=== PATIENT | female | born 1940 | race Caucasian/White ===

== ENCOUNTER 2016-05-16 09:56 | Day surgery (SDC) | payer MEDICARE, BC ==
[2016-05-12 14:13] VITALS: BMI 31.9
[~2016-05-16 09:56] MED LIST: DEXAMETHASONE SOD PHOSPHATE 10 MG/ML 1 ML VIAL IV ONE; LACTATED RINGERS 1,000 ML IV SCH; LIDOCAINE 1% 20 ML VIAL (10MG/ML) FOR IV START INTRADERMA PRN; MIDAZOLAM 2 MG/2 ML VIAL IV PRN; ONDANSETRON 4 MG/2 ML VIAL IVP ONE; SCOPOLAMINE 1.5MG/72HR PATCH TRANSDERM ONE
[2016-05-16 10:30] VITALS: RESP 16; TEMP 97.9
[2016-05-16] MEDS: CYCLOPENTOLATE 1% OPHTH SOLN 2 ML BTL OP ONE ×3 (10:33→10:59)
[2016-05-16] MEDS: FLURBIPROFEN 0.03% OPHTH DROPS 2.5 ML BTL OP ONE ×3 (10:43→11:02)
[2016-05-16] MEDS: PHENYLEPHRINE 10% OPHTH DROPS 5 ML BTL OP ONE ×3 (10:46→11:04)
[2016-05-16 10:48] LABS: Glucose,Whole Blood 115 mg/dL (75-99)
[2016-05-16] MEDS ORDERED: PROPOFOL 10 MG/ML 20 ML VIAL IV ONE (11:15)
[2016-05-16] MEDS ORDERED: LIDOCAINE 1% INJ 10MG/ML (20 ML MDV) ONE (11:15)
[2016-05-16] MEDS ORDERED: BALANCED SALT IRRIG SOLN COMB2 15 ML IRRIG.SOLN INTRAOCULA ONE (11:29)
[2016-05-16] MEDS ORDERED: HYALURONATE SODIUM INTRAOCULAR 1 EACH SYRINGE (10MG/ML) INTRAOCULA ONE (11:30)
[2016-05-16] MEDS ORDERED: EPINEPHrine (PF) 0.5 ML in BALANCED SALT IRRIG SOLN COMB2 500 ML IRRIGATION ONE (11:30)
--- NOTE | 2016-05-16 11:41 | P.OP ---
Date of Procedure: 05/16/16 Procedure(s) Performed: PREOPERATIVE DIAGNOSIS: Cataract, right eye. POSTOPERATIVE DIAGNOSIS: Cataract, right eye. OPERATION: Phacoemulsification cataract, right eye. DESCRIPTION OF PROCEDURE: The patient was taken to the preoperative holding area. Intravenous Propofol was given so as to bring about adequate sedation. The following mixture was given for local anesthesia: 5 mL of 2% lidocaine, 5 mL of 0.75% Marcaine, and 1 mL of Wydase. Approximately 4 mL was injected in the retrobulbar space of the surgical eye. Additional 1 mL was then directed to the temporal area of the surgical eye. This was performed to allow adequate neurological block of the facial muscles. The patient was revived and then taken into the operative room. The patient was prepped and draped in the usual sterile manner for the operative eye. A lid speculum was put into position. The conjunctiva was resected back from the limbus in the 12 o'clock position. Bleeding was controlled with electrocautery. A #69 blade was then used and a half-thickness scleral incision approximately 1-mm posterior to the limbus was made on bare sclera. This was shelved in the clear cornea using a crescent knife. Next a 15-degree blade was used to make a stab incision at the 3 o' clock position at the corneolimbal interface. Keratome blade was then used and the superior wound was extended into the anterior chamber. Viscoelastic was injected into the anterior chamber and to maintain its form. Next, a cystotome was used and a continuous anterior capsulotomy was made without difficulty. Hydrodissection using a blunt cannula and BSS was performed. Phaco probe was then employed and a groove extending from 12 to 6 o'clock in the lens was created. A Casper wand was used through the stab incision so as to perform a divide and conquer technique. Next an irrigation aspiration probe was utilized and any residual cortex was removed from the eye. Again, viscoelastic was injected into the anterior chamber. An Indra posterior chamber lens implant was placed in the cartridge and injected into the anterior chamber without difficulty. The SinOmnioxey hook was utilized to spin the lens into position and this was again performed without any difficulty. The irrigation and aspiration probe was again employed and any residual viscoelastic was removed from the eye. Then BSS was injected into the limbal stab incision and the anterior chamber re-inflated. The conjunctiva was reapproximated using electrocautery. One drop of 0.25% Timoptic was placed over the corneal along with TobraDex ophthalmic ointment. Two sterile patches and a Sanchez eye shield were taped into position. The patient was transported to the recovery room in stable condition. Pathology: none sent Condition: stable Disposition: same day
[2016-05-16 12:06] VITALS: BP 138/72; PULSE 80
[2016-05-16] MEDS ORDERED: TIMOLOL 0.5% OPHTH SOLN (PF) 0.2 ML DROPERETTE OP ONE (23:00)
[2016-05-16] MEDS ORDERED: BUPIVACAINE (PF) 0.75% 5 ML, LIDOCAINE 4% (PF) 5 ML, HYALURONIDASE, HUMAN RECOMB 150 UNIT MISCELLANE ONE ×3 (23:00)
[2016-05-16] MEDS ORDERED: GENTAMICIN/PREDNISOL AC OPHTH OINT 3.5GM OPHTHALMIC ONE (23:00)
== END 2016-05-16 12:24 | disposition home or self-care (01) ==
LOC: OR 09:56
PROVIDERS: ATTEND Ophthalmology
DX: H26.9 Unspecified cataract (principal); E11.9 Type 2 diabetes mellitus without complications; I10 Essential (primary) hypertension; K21.9 Gastro-esophageal reflux disease without esophagitis; Z88.1 Allergy status to other antibiotic agents; Z88.0 Allergy status to penicillin; Z79.84 Long term (current) use of oral hypoglycemic drugs; Z79.899 Other long term (current) drug therapy; Z98.42 Cataract extraction status, left eye; Z96.1 Presence of intraocular lens
CPT/HCPCS: 66984; V2632; J2001 ×2; J3470; J0171; J2704; 99152; 99153

== ENCOUNTER 2018-07-16 19:47 | Emergency (ER) | payer MEDICARE, BC ==
--- NOTE | 2018-07-16 21:25 | ED ---
General Adult HPI - General Chief complaint: Recheck/Abnormal Lab/Rx Stated complaint: High bp,shaking,headache Time Seen by Provider: 07/16/18 21:02 Source: patient Mode of arrival: wheelchair Limitations: no limitations - History of Present Illness Initial comments: Patient is a 77-year-old female with a history of hypertension who presents with a chief complaint of headache and "shakiness". Patient states that for the last 2 weeks she has not been taking her amlodipine secondary to a recall that she read about on Facebook. The patient states that today she restarted her medication as her blood pressure was reading high. She states that her symptoms lasted about an hour and then resolved after taking the medication. - Related Data Home Medications Medication Instructions Recorded Confirmed amLODIPine [Norvasc] 10 mg PO DAILY 03/27/16 07/16/18 metFORMIN HCL [Glucophage] 1,000 mg PO BID 03/27/16 07/16/18 sitaGLIPtin PHOSPHATE [Januvia] 100 mg PO DAILY 03/27/16 07/16/18 Co Q-10 1 tab PO DAILY 05/12/16 07/16/18 [place]-3 Fatty Acids/Fish Oil [Fish 1 cap PO DAILY 05/12/16 07/16/18 Oil 1,000 mg Softgel] Cinnamon Bark [Cinnamon] 500 mg PO DAILY 07/16/18 07/16/18 Magnesium(Unknown) 1 tab PO DAILY 07/16/18 07/16/18 Turmeric Root Extract [Turmeric] 500 mg PO DAILY 07/16/18 07/16/18 Vitamin D3(Unknown) 1 tab PO DAILY 07/16/18 07/16/18 Allergies Allergy/AdvReac Type Severity Reaction Status Date / Time Penicillins Allergy Rash/Hives Verified 07/16/18 20:58 Review of Systems ROS Statement: Those systems with pertinent positive or pertinent negative responses have been documented in the HPI. ROS Other: All systems not noted in ROS Statement are negative. Neurological: Reports: headache Past Medical History Past Medical History: Blood Disorder, Diabetes Mellitus, GERD/Reflux, Hearing Disorder / Deafness, Hyperlipidemia, Hypertension, Osteoarthritis (OA) Additional Past Medical History / Comment(s): BACK PAIN, THALASSEMIA MINOR. History of Any Multi-Drug Resistant Organisms: None Reported Past Surgical History: Hysterectomy, Orthopedic Surgery, Tonsillectomy Additional Past Surgical History / Comment(s): right elbow surgery, CATARACT LEFT EYE (03/28/16) Past Anesthesia/Blood Transfusion Reactions: No Reported Reaction Past Psychological History: No Psychological Hx Reported Smoking Status: Never smoker Past Alcohol Use History: None Reported Past Drug Use History: None Reported - Past Family History Mother Family Medical History: No Reported History Additional Family Medical History / Comment(s): THALLISEMIA AND SIBLINGS ALSO. General Exam Limitations: no limitations General appearance: alert, in no apparent distress Head exam: Present: atraumatic, normocephalic Eye exam: Present: normal appearance, PERRL ENT exam: Present: normal exam Neck exam: Present: normal inspection Respiratory exam: Present: normal lung sounds bilaterally. Absent: respiratory distress, wheezes Cardiovascular Exam: Present: regular rate, normal rhythm GI/Abdominal exam: Present: soft. Absent: distended, tenderness Rectal exam: Present: deferred Extremities exam: Present: normal inspection Back exam: Present: normal inspection Neurological exam: Present: alert, oriented X3 Psychiatric exam: Present: normal affect, normal mood Skin exam: Present: warm, dry, intact Course Vital Signs 07/16/18 07/16/18 07/16/18 19:57 21:35 23:45 Temperature 97.8 F 97.6 F Pulse Rate 91 77 75 Respiratory 16 18 18 Rate Blood Pressure 154/73 145/77 132/67 O2 Sat by Pulse 98 96 98 Oximetry Medical Decision Making - Medical Decision Making Patient presents with a chief complaint of headache and hypertension. On initial evaluation, vital signs are stable, blood pressure is 150s over 70s, patient is in no acute distress. She is currently asymptomatic. She'll be evaluated basic labs and EKG. EKG performed at 2145 shows normal sinus rhythm with a rate of 77 bpm. Segment appeared be within normal limits, there are no acute signs of ischemia. 11:40 PM Lab evaluation this patient is unremarkable except for creatinine of 1.20. Left was within normal limits. Patient's blood pressure is around 130 systolic without intervention. At this time, the patient still for discharge and primary care follow-up. She was instructed to continue taking her amlodipine as prescribed. Return to the emergency department if symptoms worsen or change. - Lab Data Result diagrams: 07/16/18 21:33 07/16/18 21:33 Lab Results 07/16/18 07/16/18 07/16/18 Range/Units 21:33 21:33 21:33 WBC 6.9 (3.8-10.6) k/uL RBC 5.75 H (3.80-5.40) m/uL Hgb 10.7 L (11.4-16.0) gm/dL Hct 35.4 (34.0-46.0) % MCV 61.6 L (80.0-100.0) fL MCH 18.6 L (25.0-35.0) pg MCHC 30.2 L (31.0-37.0) g/dL RDW 15.4 (11.5-15.5) % Plt Count 247 (150-450) k/uL Neutrophils % 50 % Lymphocytes % 38 % Monocytes % 6 % Eosinophils % 4 % Basophils % 1 % Neutrophils # 3.4 (1.3-7.7) k/uL Lymphocytes # 2.6 (1.0-4.8) k/uL Monocytes # 0.4 (0-1.0) k/uL Eosinophils # 0.3 (0-0.7) k/uL Basophils # 0.1 (0-0.2) k/uL Hypochromasia Slight Microcytosis Marked Sodium 141 (137-145) mmol/L Potassium 4.6 (3.5-5.1) mmol/L Chloride 109 H (98-107) mmol/L Carbon Dioxide 23 (22-30) mmol/L Anion Gap 9 mmol/L BUN 23 H (7-17) mg/dL Creatinine 1.20 H (0.52-1.04) mg/dL Est GFR (CKD-EPI)AfAm 50 (>60 ml/min/1.73 sqM) Est GFR (CKD-EPI)NonAf 43 (>60 ml/min/1.73 sqM) Glucose 111 H (74-99) mg/dL Calcium 10.2 (8.4-10.2) mg/dL Troponin I <0.012 (0.000-0.034) ng/mL Disposition Clinical Impression: Hypertension Disposition: HOME SELF-CARE Condition: Good Instructions (If sedation given, give patient instructions): Amlodipine (By mouth), Hypertension (ED) Is patient prescribed a controlled substance at d/c from ED?: No Referrals: Johnson Whalen DO [Primary Care Provider] - 1-2 days
[2018-07-16 21:36] VITALS: RESP 18
[2018-07-16 21:53] LABS: Basophils # (A) 0.1 k/uL (0-0.2); Basophils % (A) 1 %; Eosinophils # (A) 0.3 k/uL (0-0.7); Eosinophils % (A) 4 %; HCT 35.4 % (34.0-46.0); HGB 10.7 gm/dL (11.4-16.0); Hypochromasia Slight; Lymphocytes # (A) 2.6 k/uL (1.0-4.8); Lymphocytes % (A) 38 %; MCH 18.6 pg (25.0-35.0); MCHC 30.2 g/dL (31.0-37.0); MCV 61.6 fL (80.0-100.0); Mean Platelet Volume 6.5; Microcytosis Marked; Monocytes # (A) 0.4 k/uL (0-1.0); Monocytes % (A) 6 %; Neutrophils # (A) 3.4 k/uL (1.3-7.7); Neutrophils % (A) 50 %; Platelet Count 247 k/uL (150-450); RBC 5.75 m/uL (3.80-5.40); RDW 15.4 % (11.5-15.5); WBC 6.9 k/uL (3.8-10.6)
[2018-07-16 22:21] LABS: Calcium 10.2 mg/dL (8.4-10.2); Potassium 4.6 mmol/L (3.5-5.1)
[2018-07-16 23:46] VITALS: BP 132/67; PULSE 75; TEMP 97.6
== END 2018-07-17 00:01 | disposition home or self-care (01) ==
LOC: EC 19:47
DX: I10 Essential (primary) hypertension (principal); E11.9 Type 2 diabetes mellitus without complications; M19.90 Unspecified osteoarthritis, unspecified site; H91.90 Unspecified hearing loss, unspecified ear; Z79.84 Long term (current) use of oral hypoglycemic drugs; Z79.899 Other long term (current) drug therapy; Z88.0 Allergy status to penicillin
CPT/HCPCS: 36415; 80048; 84484; 85025; 93005; 99284

== ENCOUNTER 2020-04-03 18:28 | Inpatient (IN) | payer MEDICARE, BC ==
[2020-04-03] MEDS ORDERED: MORPHINE SULFATE 4 MG/ML SYRINGE IVP STA (18:41)
[2020-04-03] MEDS ORDERED: ONDANSETRON 4 MG/2 ML VIAL IVP STA (18:41)
[2020-04-03] MEDS: SODIUM CHLORIDE 0.9% 1,000 ML IV SCH ×2 (19:19→22:53)
--- NOTE | 2020-04-03 19:26 | ED ---
Fall HPI <Eber Lennon - Last Filed: 04/03/20 20:12> - General Source: patient, EMS, RN notes reviewed, old records reviewed Mode of arrival: EMS <Guerline Gonzalezily - Last Filed: 04/03/20 20:18> - General Chief Complaint: Fall Stated Complaint: fall/hip pain Time Seen by Provider: 04/03/20 18:31 - History of Present Illness Initial Comments: Patient is a pleasant 79-year-old female presents emergency department today af ter she actually tripped over her feet while she was hanging [place] decorations today. Patient is not on blood thinners. She reports that she tripped landing on her left hip. She reports family was at the home and were able to call 911 and she was transported via EMS. She was given IV ketamine prior to arrival. She does report that her pain is now a 10 out of 10 on her left hip. She denies any head or neck injury. Denies any other extremity injury. (Za Gonzalez) - Related Data Home Medications Medication Instructions Recorded Confirmed amLODIPine [Norvasc] 10 mg PO DAILY 03/27/16 07/16/18 metFORMIN HCL [Glucophage] 1,000 mg PO BID 03/27/16 07/16/18 sitaGLIPtin PHOSPHATE [Januvia] 100 mg PO DAILY 03/27/16 07/16/18 Co Q-10 1 tab PO DAILY 05/12/16 07/16/18 [place]-3 Fatty Acids/Fish Oil [Fish 1 cap PO DAILY 05/12/16 07/16/18 Oil 1,000 mg Softgel] Cinnamon Bark [Cinnamon] 500 mg PO DAILY 07/16/18 07/16/18 Magnesium(Unknown) 1 tab PO DAILY 07/16/18 07/16/18 Turmeric Root Extract [Turmeric] 500 mg PO DAILY 07/16/18 07/16/18 Vitamin D3(Unknown) 1 tab PO DAILY 07/16/18 07/16/18 Allergies Allergy/AdvReac Type Severity Reaction Status Date / Time Penicillins Allergy Rash/Hives Verified 04/03/20 18:51 sulfamethoxazole Allergy Rash/Hives Verified 04/03/20 18:51 [From Bactrim] trimethoprim [From Bactrim] Allergy Rash/Hives Verified 12/05/20 18:51 Review of Systems ROS Other: All systems not noted in ROS Statement are negative. <Eber Lennon - Last Filed: 04/03/20 20:12> ROS Other: All systems not noted in ROS Statement are negative. <Za Gonzalez - Last Filed: 04/03/20 20:18> ROS Statement: Those systems with pertinent positive or pertinent negative responses have been documented in the HPI. Past Medical History Past Medical History: Blood Disorder, Diabetes Mellitus, GERD/Reflux, Hearing Disorder / Deafness, Hyperlipidemia, Hypertension, Osteoarthritis (OA) Additional Past Medical History / Comment(s): BACK PAIN, THALASSEMIA MINOR. History of Any Multi-Drug Resistant Organisms: None Reported Past Surgical History: Hysterectomy, Orthopedic Surgery, Tonsillectomy Additional Past Surgical History / Comment(s): right elbow surgery, CATARACT LEFT EYE (03/28/16) Past Anesthesia/Blood Transfusion Reactions: No Reported Reaction Past Psychological History: No Psychological Hx Reported Smoking Status: Never smoker Past Alcohol Use History: None Reported Past Drug Use History: None Reported - Past Family History Mother Family Medical History: No Reported History Additional Family Medical History / Comment(s): THALLISEMIA AND SIBLINGS ALSO. <CarlosZa - Last Filed: 04/03/20 20:18> General Exam Limitations: no limitations General appearance: alert, in no apparent distress Head exam: Present: atraumatic, normocephalic, normal inspection Eye exam: Present: normal appearance, PERRL, EOMI. Absent: scleral icterus, conjunctival injection, periorbital swelling ENT exam: Present: normal exam, mucous membranes moist Neck exam: Present: normal inspection. Absent: tenderness, meningismus, lymphadenopathy Respiratory exam: Present: normal lung sounds bilaterally. Absent: respiratory distress, wheezes, rales, rhonchi, stridor Cardiovascular Exam: Present: regular rate, normal rhythm, normal heart sounds. Absent: systolic murmur, diastolic murmur, rubs, gallop, clicks GI/Abdominal exam: Present: soft, normal bowel sounds. Absent: distended, tenderness, guarding, rebound, rigid Extremities exam: Present: normal inspection, full ROM, normal capillary refill. Absent: tenderness, pedal edema, joint swelling, calf tenderness Left Hip exam: Present: external rotation, shortening. Absent: normal inspection Knee exam: Present: normal inspection, full ROM Lower Leg exam: Present: normal inspection, full ROM Ankle exam: Present: normal inspection, full ROM Neurovascular tendon exam: Present: no vascular compromise Back exam: Present: normal inspection Neurological exam: Present: alert, oriented X3, CN II-XII intact Psychiatric exam: Present: normal affect, normal mood Skin exam: Present: warm, dry, intact, normal color. Absent: rash <Za Gonzalez - Last Filed: 04/03/20 20:18> - General Exam Comments Initial Comments: 79 year old female, no distress. (Za Gonzalez) Course <Eber Lennon - Last Filed: 04/03/20 20:12> Vital Signs 04/03/20 04/03/20 18:45 20:02 Temperature 98.4 F Pulse Rate 104 H 108 H Respiratory 19 20 Rate Blood Pressure 161/80 167/97 O2 Sat by Pulse 97 98 Oximetry - Reevaluation(s) Reevaluation #1: 04/03/20 20:[address] Ramos who will admit, likely OR tomorrow. Patient will be kept nothing by mouth tonight. Case discussed with Dr. Harkins who will be p laced on consult for preoperative clearance. Patient is alert, well-appearing with complaints only of left hip pain. Distal pulses are intact. X-ray showing left IT fracture. (Eber Lennon) Medical Decision Making - Lab Data Result diagrams: 04/03/20 19:06 04/03/20 19:06 <Eber Lennon - Last Filed: 04/03/20 20:12> - Lab Data Result diagrams: 04/03/20 19:06 04/03/20 19:06 - Radiology Data Radiology results: report reviewed <Za Gonzalez - Last Filed: 04/03/20 20:18> - Medical Decision Making 79-year-old female presents emergency department today for evaluation with complaints of fall today landing on her left hip. She is a short rotated left hip. X-ray confirms a left intertrochanteric fracture. Family requested Dr. Ramos be surgeon. She has history of diabetes and hypertension. She is not on blood thinners. She has no other injury related to the fall. She is otherwise pretty active 79-year-old female. Patient's case was discussed with Dr. Lennon whom discussed the case with Dr. Ramos. (Za Gonzalez) - Lab Data Lab Results 04/03/20 04/03/20 04/03/20 Range/Units 19:06 19:06 19:06 WBC 10.4 (3.8-10.6) k/uL RBC 5.50 H (3.80-5.40) m/uL Hgb 10.5 L (11.4-16.0) gm/dL Hct 34.2 (34.0-46.0) % MCV 62.1 L (80.0-100.0) fL MCH 19.2 L (25.0-35.0) pg MCHC 30.9 L (31.0-37.0) g/dL RDW 15.5 (11.5-15.5) % Plt Count 276 (150-450) k/uL MPV 7.3 Neutrophils % 78 % Lymphocytes % 15 % Monocytes % 3 % Eosinophils % 2 % Basophils % 1 % Neutrophils # 8.1 H (1.3-7.7) k/uL Lymphocytes # 1.6 (1.0-4.8) k/uL Monocytes # 0.4 (0-1.0) k/uL Eosinophils # 0.2 (0-0.7) k/uL Basophils # 0.1 (0-0.2) k/uL Hypochromasia Moderate Microcytosis Marked PT 9.7 (9.0-12.0) sec INR 0.9 (<1.2) APTT 19.5 L (22.0-30.0) sec Sodium 138 (137-145) mmol/L Potassium 4.5 (3.5-5.1) mmol/L Chloride 106 (98-107) mmol/L Carbon Dioxide 19 L (22-30) mmol/L Anion Gap 13 mmol/L BUN 22 H (7-17) mg/dL Creatinine 0.86 (0.52-1.04) mg/dL Est GFR (CKD-EPI)AfAm 74 (>60 ml/min/1.73 sqM) Est GFR (CKD-EPI)NonAf 64 (>60 ml/min/1.73 sqM) Glucose 160 H (74-99) mg/dL Calcium 9.7 (8.4-10.2) mg/dL Total Bilirubin 0.4 (0.2-1.3) mg/dL AST 34 (14-36) U/L ALT 19 (4-34) U/L Alkaline Phosphatase 66 (38-126) U/L Total Protein 7.4 (6.3-8.2) g/dL Albumin 4.5 (3.5-5.0) g/dL Urine Color Urine Appearance (Clear) Urine pH (5.0-8.0) Ur Specific [place] (1.001-1.035) Urine Protein (Negative) Urine Glucose (UA) (Negative) Urine Ketones (Negative) Urine Blood (Negative) Urine Nitrite (Negative) Urine Bilirubin (Negative) Urine Urobilinogen (<2.0) mg/dL Ur Leukocyte Esterase (Negative) 04/03/20 Range/Units 20:01 WBC (3.8-10.6) k/uL RBC (3.80-5.40) m/uL Hgb (11.4-16.0) gm/dL Hct (34.0-46.0) % MCV (80.0-100.0) fL MCH (25.0-35.0) pg MCHC (31.0-37.0) g/dL RDW (11.5-15.5) % Plt Count (150-450) k/uL MPV Neutrophils % % Lymphocytes % % Monocytes % % Eosinophils % % Basophils % % Neutrophils # (1.3-7.7) k/uL Lymphocytes # (1.0-4.8) k/uL Monocytes # (0-1.0) k/uL Eosinophils # (0-0.7) k/uL Basophils # (0-0.2) k/uL Hypochromasia Microcytosis PT (9.0-12.0) sec INR (<1.2) APTT (22.0-30.0) sec Sodium (137-145) mmol/L Potassium (3.5-5.1) mmol/L Chloride (98-107) mmol/L Carbon Dioxide (22-30) mmol/L Anion Gap mmol/L BUN (7-17) mg/dL Creatinine (0.52-1.04) mg/dL Est GFR (CKD-EPI)AfAm (>60 ml/min/1.73 sqM) Est GFR (CKD-EPI)NonAf (>60 ml/min/1.73 sqM) Glucose (74-99) mg/dL Calcium (8.4-10.2) mg/dL Total Bilirubin (0.2-1.3) mg/dL AST (14-36) U/L ALT (4-34) U/L Alkaline Phosphatase (38-126) U/L Total Protein (6.3-8.2) g/dL Albumin (3.5-5.0) g/dL Urine Color Light Yellow Urine Appearance Clear (Clear) Urine pH 6.5 (5.0-8.0) Ur Specific [place] 1.012 (1.001-1.035) Urine Protein Negative (Negative) Urine Glucose (UA) Negative (Negative) Urine Ketones Negative (Negative) Urine Blood Negative (Negative) Urine Nitrite Negative (Negative) Urine Bilirubin Negative (Negative) Urine Urobilinogen <2.0 (<2.0) mg/dL Ur Leukocyte Esterase Negative (Negative) 04/03/20 19:34 EKG performed at 1928 shows sinus tachycardia with premature supraventricular, [place]. Recheck chloride 10 5 bpm.. Intervals 136 most seconds. Curious dur ation 74 ms. QT QTc is 356/470 ms. (Za Gonzalez) - Radiology Data slightly impacted intertrochanteric left femur fracture. No acute active critical coronary disease. Atheromatous aorta. (Za Gonzalez) Disposition <Eber Lennon - Last Filed: 04/03/20 20:12> Is patient prescribed a controlled substance at d/c from ED?: No Time of Disposition: 20:17 <Za Gonzalez - Last Filed: 04/03/20 20:18> Clinical Impression: Hip fracture, left, Diabetes, Hypertension Disposition: ADMITTED IP TO THIS HOSP Condition: Good Referrals: Johnson Whalen DO [Primary Care Provider] - 1-2 days
[2020-04-03 19:32] LABS: Basophils # (A) 0.1 k/uL (0-0.2); Basophils % (A) 1 %; Eosinophils # (A) 0.2 k/uL (0-0.7); Eosinophils % (A) 2 %; HCT 34.2 % (34.0-46.0); HGB 10.5 gm/dL (11.4-16.0); Hypochromasia Moderate; Lymphocytes # (A) 1.6 k/uL (1.0-4.8); Lymphocytes % (A) 15 %; MCH 19.2 pg (25.0-35.0); MCHC 30.9 g/dL (31.0-37.0); MCV 62.1 fL (80.0-100.0); Mean Platelet Volume 7.3; Microcytosis Marked; Monocytes # (A) 0.4 k/uL (0-1.0); Monocytes % (A) 3 %; Neutrophils # (A) 8.1 k/uL (1.3-7.7); Neutrophils % (A) 78 %; Platelet Count 276 k/uL (150-450); RDW 15.5 % (11.5-15.5); WBC 10.4 k/uL (3.8-10.6)
[2020-04-03 19:43] LABS: INR 0.9 (<1.2); Prothrombin Time 9.7 sec (9.0-12.0)
[2020-04-03 19:45] LABS: Albumin 4.5 g/dL (3.5-5.0); Calcium 9.7 mg/dL (8.4-10.2); Potassium 4.5 mmol/L (3.5-5.1); Total Bilirubin 0.4 mg/dL (0.2-1.3); Total Protein 7.4 g/dL (6.3-8.2)
--- NOTE | 2020-04-03 19:52 | XR ---
EXAMINATION TYPE: XR Hip LT and AP Pelvis DATE OF EXAM: 04/03/2020 COMPARISON: NONE HISTORY: Hip pain TECHNIQUE: 3 views FINDINGS: There is acute intertrochanteric fracture left femur. There is mild impaction. There is no dislocation. There is some osteoarthritis in the left hip joint. Pelvic ring is intact. Sacroiliac shaji ints are intact. IMPRESSION: Acute slightly impacted intertrochanteric fracture left femur.
--- NOTE | 2020-04-03 19:53 | XR ---
EXAMINATION TYPE: XR chest 1V DATE OF EXAM: 04/03/2020 COMPARISON: NONE HISTORY: Fall. Pain. TECHNIQUE: Single view FINDINGS: There is no heart failure nor confluent pneumonic infiltrate. Thoracic aorta is atheromatou s. Heart size is fairly normal. Costophrenic angles are clear. IMPRESSION: No active cardiopulmonary disease. Atheromatous aorta.
[2020-04-03 19:59] LABS: Partial Thromboplastin Time 19.5 sec (22.0-30.0)
[2020-04-03 20:06] LABS: Appearance,Urine Clear (Clear); Bilirubin,Urine Negative (Negative); Blood,Urine Negative (Negative); Color,Urine Light Yellow; Glucose,Urine (UA) Negative (Negative); Ketones,Urine Negative (Negative); Leukocyte Esterase,Urine Negative (Negative); Nitrite,Urine Negative (Negative); PH, Urine 6.5 (5.0-8.0); Protein,Urine Negative (Negative); Specific Gravity,Urine 1.012 (1.001-1.035); Urobilinogen,Urine <2.0 mg/dL (<2.0)
[2020-04-03] MEDS ORDERED: ONDANSETRON 4 MG/2 ML VIAL IVP PRN (20:18)
[2020-04-03] MEDS ORDERED: NALOXONE 0.4 MG/ML 1 ML VIAL IV PRN (20:18)
[2020-04-03 21:45] LABS: Glucose,Whole Blood 218 mg/dL (75-99)
[2020-04-03] MEDS: metFORMIN 500 MG TAB PO SCH (22:53)
[2020-04-04] MEDS: MORPHINE SULFATE 4 MG/ML SYRINGE IV PRN ×2 (04:38→08:37)
[2020-04-04 07:37] LABS: Glucose,Whole Blood 115 mg/dL (75-99)
[2020-04-04] MEDS: metFORMIN 500 MG TAB PO SCH ×2 (08:32→17:08)
[2020-04-04] MEDS: amLODIPine 10 MG TAB PO SCH (08:36)
[2020-04-04] MEDS: PANTOPRAZOLE 40 MG/10 ML VIAL IV SCH (08:36)
[2020-04-04] MEDS ORDERED: CO Q10 PO SCH (09:00)
--- NOTE | 2020-04-04 10:06 | P.HPOR ---
History of Present Illness H&P Date: 04/04/20 This patient is an 79-year-old female with past medical history of hypertension and diabetes type 2 that presented to [facility] emergency department yesterday evening via ambulance after a fall in the home. Patient states she was hanging [employer] decorations, lost her footing and fell directly onto the left hip. She states she experienced immediate pain in the hip and was unable to stand up. She alerted her son in law and daughter that were down stairs, who called the ambulance. X-rays in the emergency department revealed a left intertrochanteric hip fracture. The patient was admitted under the care of Dr. Ramos with a consult placed to internal medicine for preoperative medical cl earance. At the time of my exam, the patient is complaining of isolated left hip pain. She states she did not hit her head when she fell. She states currently her pain is pretty well-controlled. She denies numbness or tingling of the left lower extremity. She denies chest pain, shortness breath, nausea, vomiting, fevers, chills. She has no additional complaints at this time. Vital signs are currently stable. Past Medical History Past Medical History: Blood Disorder, Diabetes Mellitus, GERD/Reflux, Hearing Disorder / Deafness, Hyperlipidemia, Hypertension, Osteoarthritis (OA) Additional Past Medical History / Comment(s): BACK PAIN, THALASSEMIA MINOR. History of Any Multi-Drug Resistant Organisms: None Reported Past Surgical History: Hysterectomy, Orthopedic Surgery, Tonsillectomy Additional Past Surgical History / Comment(s): right elbow surgery, CATARACT LEFT EYE (03/28/16) Past Anesthesia/Blood Transfusion Reactions: No Reported Reaction Past Psychological History: No Psychological Hx Reported Smoking Status: Never smoker Past Alcohol Use History: None Reported Past Drug Use History: None Reported - Past Family History Mother Family Medical History: No Reported History Additional Family Medical History / Comment(s): THALLISEMIA AND SIBLINGS ALSO. Medications and Allergies Home Medications Medication Instructions Recorded Confirmed Type amLODIPine [Norvasc] 10 mg PO DAILY 03/27/16 04/03/20 History metFORMIN HCL [Glucophage] 1,000 mg PO BID 03/27/16 04/03/20 History sitaGLIPtin PHOSPHATE [Januvia] 100 mg PO DAILY 03/27/16 04/03/20 History Co Q-10 1 tab PO DAILY 05/12/16 04/03/20 History [place]-3 Fatty Acids/Fish Oil [Fish 1 cap PO HS 05/12/16 04/03/20 History Oil 1,000 mg Softgel] Cinnamon Bark [Cinnamon] 500 mg PO DAILY 07/16/18 04/03/20 History Magnesium(Unknown) 1 tab PO HS 07/16/18 04/03/20 History Turmeric Root Extract [Turmeric] 500 mg PO HS 07/16/18 04/03/20 History Vitamin D3(Unknown) 1 tab PO DAILY 07/16/18 04/03/20 History Red Yeast Rice 600 mg PO DAILY 04/03/20 04/03/20 History Vitamin C(Unknown) 1 tab PO DAILY 04/03/20 04/03/20 History Zinc 50 mg PO DAILY 04/03/20 04/03/20 History Allergies Allergy/AdvReac Type Severity Reaction Status Date / Time Penicillins Allergy Rash/Hives Verified 04/03/20 20:30 sulfamethoxazole Allergy Rash/Hives Verified 04/03/20 20:30 [From Bactrim] trimethoprim [From Bactrim] Allergy Rash/Hives Verified 04/03/20 20:30 Physical Examination On examination, the patient is lying in bed in no acute distress. She is alert and oriented 3. Her head appears normocephalic and atraumatic. Her breathing appears nonlabored. On inspection of the bilateral upper extremities, there are no obvious deformities or signs of trauma. On inspection of the right lower extremity, there are no obvious deformities or signs of trauma. On inspection of the left hip, there is no erythema, ecchymosis, skin discoloration. There are no open wounds or lacerations. There is diffuse pain on palpation of the left hip. No pain on palpation of the left knee, lower leg, ankle, foot. Range of motion of the left hip is not tested at this time. Patient has good strength and range of motion of the left ankle. Motor and sensory function are intact of the left lower extremity. The left lower extremity is warm and well-perfused with brisk capillary refill distally, Dorsalis pedis pulse +2. Calves are soft and nontender to palpation bilateral ly. Fuentes catheter is in place. Results Left hip x-ray 04/03/2020: Left intertrochanteric hip fracture - Labs Labs: Abnormal Lab Results - Last 24 Hours (Table) 04/03/20 04/03/20 04/03/20 Range/Units 19:06 19:06 19:06 RBC 5.50 H (3.80-5.40) m/uL Hgb 10.5 L (11.4-16.0) gm/dL MCV 62.1 L (80.0-100.0) fL MCH 19.2 L (25.0-35.0) pg MCHC 30.9 L (31.0-37.0) g/dL Neutrophils # 8.1 H (1.3-7.7) k/uL APTT 19.5 L (22.0-30.0) sec Carbon Dioxide 19 L (22-30) mmol/L BUN 22 H (7-17) mg/dL Glucose 160 H (74-99) mg/dL POC Glucose (mg/dL) (75-99) mg/dL 04/03/20 04/04/20 Range/Units 21:44 07:35 RBC (3.80-5.40) m/uL Hgb (11.4-16.0) gm/dL MCV (80.0-100.0) fL MCH (25.0-35.0) pg MCHC (31.0-37.0) g/dL Neutrophils # (1.3-7.7) k/uL APTT (22.0-30.0) sec Carbon Dioxide (22-30) mmol/L BUN (7-17) mg/dL Glucose (74-99) mg/dL POC Glucose (mg/dL) 218 H 115 H (75-99) mg/dL H & H 04/03/20 Range/Units 19:06 Hgb 10.5 L (11.4-16.0) gm/dL Hct 34.2 (34.0-46.0) % Coagulation 04/03/20 Range/Units 19:06 INR 0.9 (<1.2) Result Diagrams: 04/03/20 19:06 04/03/20 19:06 Assessment and Plan Assessment: Left intertrochanteric hip fracture status-post ground-level fall at home Plan: - The clinical and imaging findings were discussed with the patient. The patient was discussed in detail with Dr. Ramos. Recommended surgical fixation of her left intertrochanteric hip fracture this afternoon, pending a signed consent. Patient gave her verbal consent during my exam. - I spoke with Dr. Harkins over the phone this morning, who states this patient is cleared medically for surgery today. - NPO diet. - Strict nonweightbearing left lower extremity. Bedrest until surgery. - Pain management as needed. - We will plan for surgery this afternoon.
[2020-04-04 12:30] LABS: Glucose,Whole Blood 134 mg/dL (75-99)
[2020-04-04] MEDS: LINAGLIPTIN 5 MG TABLET PO SCH (12:54)
[2020-04-04] MEDS: ZINC SULFATE 220 MG CAP PO SCH (12:55)
[2020-04-04] MEDS: CHOLECALCIFEROL 400 UNIT TAB PO SCH (12:55)
[2020-04-04] MEDS: ASCORBIC ACID 500 MG TAB PO SCH (12:55)
[2020-04-04] MEDS ORDERED: fentaNYL (PF) 50 MCG/ML 2 ML AMP ONE (14:00)
[2020-04-04] MEDS ORDERED: PROPOFOL 10 MG/ML 20 ML VIAL IV ONE (14:00)
[2020-04-04] MEDS ORDERED: MIDAZOLAM 2 MG/2 ML VIAL ONE (14:00)
[2020-04-04] MEDS ORDERED: SODIUM CHLORIDE 0.9% 100 ML IV ONE (14:03)
[2020-04-04] MEDS ORDERED: ceFAZolin 1,000 MG in SODIUM CHLORIDE 0.9% 1,000 ML IRRIGATION ONE (14:30)
[2020-04-04] MEDS ORDERED: LACTATED RINGERS 1,000 ML IV ONE (14:45)
[2020-04-04] MEDS ORDERED: ONDANSETRON 4 MG/2 ML VIAL IVP PRN (15:18)
[2020-04-04] MEDS ORDERED: NALOXONE 0.4 MG/ML 1 ML VIAL IV PRN (15:18)
[2020-04-04 16:57] LABS: Basophils # (A) 0.1 k/uL (0-0.2); Basophils % (A) 1 %; Eosinophils # (A) 0.2 k/uL (0-0.7); Eosinophils % (A) 2 %; HCT 34.9 % (34.0-46.0); HGB 10.7 gm/dL (11.4-16.0); Hypochromasia Moderate; Lymphocytes # (A) 1.6 k/uL (1.0-4.8); Lymphocytes % (A) 14 %; MCH 19.5 pg (25.0-35.0); MCHC 30.7 g/dL (31.0-37.0); MCV 63.7 fL (80.0-100.0); Mean Platelet Volume 6.6; Microcytosis Marked; Monocytes # (A) 0.6 k/uL (0-1.0); Monocytes % (A) 5 %; Neutrophils # (A) 9.1 k/uL (1.3-7.7); Neutrophils % (A) 78 %; Platelet Count 205 k/uL (150-450); RBC 5.48 m/uL (3.80-5.40); RDW 15.4 % (11.5-15.5); WBC 11.6 k/uL (3.8-10.6)
[2020-04-04 17:05] LABS: Glucose,Whole Blood 171 mg/dL (75-99)
[2020-04-04] MEDS: ENOXAPARIN 40 MG/0.4 ML SYRINGE SQ SCH (17:08)
[2020-04-04] MEDS: HYDROcodone/APAP 5-325MG 1 EACH TAB PO PRN ×2 (17:15→21:33)
[2020-04-04] MEDS: HYDROmorphone 0.5 MG/0.5 ML SYRINGE IVP PRN ×2 (17:33→22:39)
--- NOTE | 2020-04-04 19:33 | OP ---
OPERATIVE REPORT DATE OF PROCEDURE: 04/04/2020 SURGEON: Evelio Ramos MD. PREOPERATIVE DIAGNOSIS: Left intertrochanteric hip fracture. POSTOPERATIVE DIAGNOSIS: Left intertrochanteric hip fracture. PROCEDURE PERFORMED: Left intramedullary hip screw fixation for left intertrochanteric hip fracture. ANESTHESIA: Spinal with sedation. ESTIMATED BLOOD LOSS: 100 mL. TOURNIQUET: None. DRAINS: None. COMPLICATIONS: None apparent. DISPOSITION: Postanesthesia care unit. INDICATIONS: Lluvia is a very pleasant 79-year-old female who slipped and fell at her home last night. She was brought to [facility] via ambulance. Workup including x-rays revealed a left displaced intertrochanteric hip fracture. She was admitted to the hospital. Preoperative clearance was done by Medicine for medical service. Recommendation from an orthopedic standpoint was for intramedullary hip screw fixation for the left intertrochanteric hip fracture. The risks of procedure were discussed with her in detail. These risks include, but are not limited to risk of infection, nerve damage, bleeding, pain, and a small risk of deep vein thrombosis which could lead to fatal pulmonary emboli. Further risks include lack of healing of the fracture and migration of the implant. All of her questions with regard to the procedure were answered to her satisfaction. Appropriate informed consent was obtained. DESCRIPTION OF PROCEDURE: The patient was identified in the preop holding area. Surgical site was marked by both the patient and myself. She was given 2 g of Ancef IV for prophylactic purposes. He was then transferred to the operative suite, where she was placed supine on the operative table. Spinal anesthetic was then administered, dosed per the Anesthesia Department without apparent complication. She was then placed onto the fracture table well-padded in preparation for surgery. The fracture was reduced with traction and rotation. This was confirmed with fluoroscopic imaging. When I was happy with the reduction, we proceeded. The patient's left lower extremity than prepped and draped in the usual sterile fashion. Standard surgical pause was undertaken to ensure that we were operating on the correct site and that appropriate preoperative antibiotics were given. All staff in the room were in agreement and we proceeded. The tip of the greater trochanter was then identified utilizing fluoroscopy. An approximate 3 cm incision extending from the tip of the greater trochanter proximally in line with the shaft of the femur was then made with a 10 blade scalpel. This was carried down sharply to the tensor fascia. The tensor fascia was then incised in line with the incision. The curved awl was then placed on the medial aspect of the tip of the greater trochanter. The threaded guide pin was then advanced down the femoral canal. Again this was confirmed with fluoroscopic imaging. The starting reamer was then utilized to gain access to the proximal femur. The threaded guide pin was removed and a ball-tipped guidewire was then placed down the shaft of the femur. Again this was confirmed with fluoroscopic imaging. I then proceeded to ream the intramedullary canal. Started with a 9 mm reamer and incrementally increased up to a 13 mm reamer. I then had the labor representative open a Benson 180 mm x 11 mm x 125 degree gamma nail. This was then assembled on the back table. This was then inserted over the ball-tipped guidewire. The ball-tipped guidewire was removed. A 2nd small incision was made on the lateral thigh. The threaded guide pin was then placed through the nail and into the center of the femoral head on both AP and lateral views. The tip-apex distance was appropriate. I then measured for length. I measured 100 mm. The drill was then set for 100 mm and the threaded guide pin was over-drilled under fluoroscopic imaging. I then had the labor representative open a 10 mm x 100 mm partially-threaded cannulated hip screw. This was then inserted over the threaded guide pin deep into the center of the femoral head. Her bone quality was very good. The screw had very good purchase in bone. The tip-apex distance was appropriate. Given the excellent purchase in bone, I did also proceed to compress at the fracture site at this point was well. The set screw was then placed, tightened down fully and then backed off 1/4 turn to allow for further compression at the fracture site. I then proceeded with placement of the distal locking screw. A third small stab incision was made on the lateral thigh. A 5 mm x 35 mm distal screw was placed through the static hole in the nail. Again its placement was confirmed with fluoroscopic imaging. At this point time, no further work was deemed necessary. Final AP and lateral views were taken. The nail was within the medullary canal. The hip screw was deep into the center of the femoral head. The tip-apex distance was appropriate. The distal screw was through the nail and was of appropriate length. At this point in time no further work was deemed necessary. The jig was removed. The wounds were then thoroughly irrigated with sterile saline solution with antibiotic added. The tensor fascia was closed with #1 Vicryl interrupted suture. The subcutaneous tissue was closed with 2-0 Vicryl interrupted suture. The skin was closed with stainless steel kevin. Sterile compressive dressing was then applied. All sponge and needle counts were deemed correct prior to closure. The patient tolerated the procedure without apparent complication. She was transferred to the recovery room in stable condition. MMODL / IJN: [id number] /
--- NOTE | 2020-04-04 19:54 | XR ---
EXAMINATION TYPE: XR Hip Complete LT, FL guidance operating room DATE OF EXAM: 04/04/2020 COMPARISON: NONE HISTORY: 79 year-old female left IT nailing FINDINGS: Intraoperative fluoroscopy during left proximal femoral intertrochanteric nailing. FLUOROSCOPY Fluoroscopy time of 1 minute 11 seconds was used during left IT narrowing. 2 image/s document/s the procedure. IMPRESSION: Fluoroscopy as above.
[2020-04-04 20:51] LABS: Glucose,Whole Blood 206 mg/dL (75-99)
[2020-04-04] MEDS: MAGNESIUM OXIDE 400 MG TAB PO SCH (21:33)
[2020-04-04] MEDS: SENNOSIDES-DOCUSATE SODIUM 1 EACH TAB PO SCH (21:33)
[2020-04-04] MEDS: ASPIRIN 81 MG PO SCH (21:33)
--- NOTE | 2020-04-04 22:05 | P.CONS ---
History of Present Illness - Reason for Consult Consult date: 04/04/20 Medical management Requesting physician: Johnson Whalen - Chief Complaint Left hip pain - History of Present Illness Consultation: This is a very pleasant 79-year-old patient of Dr. Whalen. Chronic stable medical conditions include diabetes, GERD, hyperlipidemia hypertension, osteoarthritis, thalassemia minor. Patient tripped mechanically taking off fall on the the left hip. Having significant pain. Did confirm to have a left femur neck fracture. Has no prior cardiac history and rather active. On September the day. The patient to go to surgery. Does not normally have any chest pain or shortness breath. Has a fair exercise tolerance. Patient was seen following surgery. Postprocedure laying in bed comfortable. No chest pain or shortness of breath. Pain control. Review of systems: GEN.: None EYES: None HEENT: None NECK: None RESPIRATORY: None CARDIOVASCULAR: None GASTROINTESTINAL: None GENITOURINARY: None MUSCULOSKELETAL: Joint pains LYMPHATICS: None HEMATOLOGICAL: None PSYCHIATRY: None NEUROLOGICAL: None Past medical history to include: Diabetes mellitus, GERD, hard of hearing, hyperlipidemia, hypertension, primary osteoarthritis, thalassemia minor Social history: In the apartment below patient's son and [id number] live day. No history of smoking or alcohol. Physical examination: VITAL SIGNS: 97.7, 92, 18, 135 x 70, 91% on room air GENERAL: BMI 32, laying in bed, awake. EYES: Pupils equal. Conjunctiva normal. HEENT: External appearance of nose and ears normal, oral cavity grossly normal. NECK: JVD not raised; masses not palpable. HEART: First and second heart sounds are normal; no edema. LUNGS: Respiratory rate normal; clear to auscultation. ABDOMEN: Soft, nontender, liver spleen not palpable, no masses palpable. PSYCH: Alert and oriented x3; mood and affect normal. MUSCULAR skeletal: Dressing over the left hip. Evidence of OA in the hands asleep. NEUROLOGICAL: Cranial nerves grossly intact; no facial asymmetry, power and sensation grossly intact. LYMPHATICS: No lymph nodes palpable in the axilla and neck INVESTIGATIONS, reviewed in the clinical context: White count 10.4 hemoglobin 10.5 platelets 276 potassium 4.5 creatinine 0.86 UA negative [id number], 115 EKG tracing personally reviewed by me-normal sinus rhythm Chest x-ray film personally reviewed by me-no obvious abnormality Assessment and plan -Left femur neck fracture secondary to fall. Status post repair with iron hip screw. Received IV Ancef for infection prophylaxis -Diabetes mellitus type 2 Continue oxygen to, metformin follow Accu-Cheks -GERD Continue Protonix -Hyperlipidemia Diet-controlled -Essential hypertension Continue with Norvasc -Primary osteoarthritis Pain medications when necessary -Thalassemia minor -Obesity BMI 32 Follow with PCP -Post hip repair prophylaxis Aspirin per Dr. Ramos Care was discussed with the patient. Questions were answered. Patient to follow with Dr. Whalen upon discharge. Thank Dr. Ramos Past Medical History Past Medical History: Blood Disorder, Diabetes Mellitus, GERD/Reflux, Hearing Disorder / Deafness, Hyperlipidemia, Hypertension, Osteoarthritis (OA) Additional Past Medical History / Comment(s): BACK PAIN, THALASSEMIA MINOR. History of Any Multi-Drug Resistant Organisms: None Reported Past Surgical History: Hysterectomy, Orthopedic Surgery, Tonsillectomy Additional Past Surgical History / Comment(s): right elbow surgery, CATARACT LEFT EYE (03/28/16) Past Anesthesia/Blood Transfusion Reactions: No Reported Reaction Past Psychological History: No Psychological Hx Reported Smoking Status: Never smoker Past Alcohol Use History: None Reported Past Drug Use History: None Reported - Past Family History Mother Family Medical History: No Reported History Additional Family Medical History / Comment(s): THALLISEMIA AND SIBLINGS ALSO. Medications and Allergies Home Medications Medication Instructions Recorded Confirmed Type amLODIPine [Norvasc] 10 mg PO DAILY 03/27/16 04/03/20 History metFORMIN HCL [Glucophage] 1,000 mg PO BID 03/27/16 04/03/20 History sitaGLIPtin PHOSPHATE [Januvia] 100 mg PO DAILY 03/27/16 04/03/20 History Co Q-10 1 tab PO DAILY 05/12/16 04/03/20 History [place]-3 Fatty Acids/Fish Oil [Fish 1 cap PO HS 05/12/16 04/03/20 History Oil 1,000 mg Softgel] Cinnamon Bark [Cinnamon] 500 mg PO DAILY 07/16/18 04/03/20 History Magnesium(Unknown) 1 tab PO HS 07/16/18 04/03/20 History Turmeric Root Extract [Turmeric] 500 mg PO HS 07/16/18 04/03/20 History Vitamin D3(Unknown) 1 tab PO DAILY 07/16/18 04/03/20 History Red Yeast Rice 600 mg PO DAILY 04/03/20 04/03/20 History Vitamin C(Unknown) 1 tab PO DAILY 04/03/20 04/03/20 History Zinc 50 mg PO DAILY 04/03/20 04/03/20 History Allergies Allergy/AdvReac Type Severity Reaction Status Date / Time Penicillins Allergy Rash/Hives Verified 04/03/20 20:30 sulfamethoxazole Allergy Rash/Hives Verified 04/03/20 20:30 [From Bactrim] trimethoprim [From Bactrim] Allergy Rash/Hives Verified 04/03/20 20:30 Physical Exam Vitals: Vital Signs Temp Pulse Pulse Resp BP BP Pulse Ox 04/04/20 08:41 89 149/70 94 L 04/04/20 04:14 98.3 F 92 18 148/77 93 L 04/03/20 21:27 98.1 F 110 H 19 159/81 99 04/03/20 21:20 98.2 F 106 H 17 160/79 95 04/03/20 20:02 108 H 20 167/97 98 04/03/20 18:45 98.4 F 104 H 19 161/80 97 Intake and Output 04/03/20 04/04/20 04/04/20 22:59 06:59 14:59 Output Total 2200 725 Balance -2200 -725 Output: Urine 2200 725 Other: Weight 89.811 kg Results CBC & Chem 7: 04/04/20 16:17 04/03/20 19:06 Labs: Abnormal Lab Results - Last 24 Hours (Table) 04/03/20 04/03/20 04/03/20 Range/Units 19:06 19:06 19:06 RBC 5.50 H (3.80-5.40) m/uL Hgb 10.5 L (11.4-16.0) gm/dL MCV 62.1 L (80.0-100.0) fL MCH 19.2 L (25.0-35.0) pg MCHC 30.9 L (31.0-37.0) g/dL Neutrophils # 8.1 H (1.3-7.7) k/uL APTT 19.5 L (22.0-30.0) sec Carbon Dioxide 19 L (22-30) mmol/L BUN 22 H (7-17) mg/dL Glucose 160 H (74-99) mg/dL POC Glucose (mg/dL) (75-99) mg/dL 04/03/20 04/04/20 Range/Units 21:44 07:35 RBC (3.80-5.40) m/uL Hgb (11.4-16.0) gm/dL MCV (80.0-100.0) fL MCH (25.0-35.0) pg MCHC (31.0-37.0) g/dL Neutrophils # (1.3-7.7) k/uL APTT (22.0-30.0) sec Carbon Dioxide (22-30) mmol/L BUN (7-17) mg/dL Glucose (74-99) mg/dL POC Glucose (mg/dL) 218 H 115 H (75-99) mg/dL
[2020-04-05] MEDS: SODIUM CHLORIDE 0.9% 1,000 ML IV SCH ×4 (02:20→15:01)
[2020-04-05] MEDS: HYDROmorphone 0.5 MG/0.5 ML SYRINGE IVP PRN (03:49)
[2020-04-05] MEDS: HYDROcodone/APAP 5-325MG 1 EACH TAB PO PRN ×3 (03:56→13:22)
[2020-04-05] MEDS: ASPIRIN 81 MG PO SCH ×2 (07:18→21:18)
[2020-04-05] MEDS: metFORMIN 500 MG TAB PO SCH ×2 (07:18→17:06)
[2020-04-05] MEDS: amLODIPine 10 MG TAB PO SCH (07:18)
[2020-04-05] MEDS: PANTOPRAZOLE 40 MG/10 ML VIAL IV SCH (07:19)
[2020-04-05] MEDS: ASCORBIC ACID 500 MG TAB PO SCH (07:19)
[2020-04-05] MEDS: ZINC SULFATE 220 MG CAP PO SCH (07:20)
[2020-04-05] MEDS: LINAGLIPTIN 5 MG TABLET PO SCH (07:20)
[2020-04-05] MEDS: CHOLECALCIFEROL 400 UNIT TAB PO SCH (07:20)
[2020-04-05] MEDS: ENOXAPARIN 40 MG/0.4 ML SYRINGE SQ SCH (07:20)
[2020-04-05 07:26] LABS: Glucose,Whole Blood 134 mg/dL (75-99)
[2020-04-05 11:30] LABS: Glucose,Whole Blood 182 mg/dL (75-99)
--- NOTE | 2020-04-05 14:25 | P.PN ---
Subjective Progress Note Date: 04/05/20 Principal diagnosis: Left Hip fracture Patient is seen at bedside this morning. She is postop day #1 from left gamma nail for left IT fracture. She has pain at the surgical site as expected but denies any new complaints. She denies numbness, tingling or calf pain. Review of systems is negative for fever, chills, chest pain, shortness of breath or other Objective - Vital Signs Vital signs: Vital Signs Temp 98.1 F 04/05/20 12:45 Pulse 91 04/05/20 12:45 Resp 17 04/05/20 12:45 BP 116/68 04/05/20 12:45 Pulse Ox 94 L 04/05/20 12:45 Intake & Output 04/04/20 04/05/20 04/05/20 18:59 06:59 18:59 Intake Total 851 2520 Output Total 2675 600 Balance -1824 1920 Intake: IV 651 Intake, IV Titration 1500 Amount Lactated Ringers 1,000 ml 1400 @ 0 mls/hr IV [facility] Rx#:[id number] ceFAZolin 2 gm In Sodium 100 Chloride 0.9% 50 ml @ 100 mls/hr IVPB Q8H [facility] Rx#: [id number] Oral 1020 Other 200 Output: Urine 2575 600 Uretheral (Fuentes) 1450 Estimated Blood Loss 100 Other: Voiding Method Indwelling Catheter Indwelling Catheter Indwelling Catheter - Exam Inspection reveals a benign surgical wound. There is no active bleeding or drainage. Neurovascular status is intact throughout the lower extremity with motor and sensation fully intact. Calf is soft and nontender. 2+ dorsalis pedis pulse and less than 2 second cap refill is present. - Constitutional General appearance: Present: no acute distress - Labs CBC & Chem 7: 04/04/20 16:17 04/03/20 19:06 Labs: Abnormal Lab Results - Last 24 Hours (Table) 04/04/20 04/04/20 04/04/20 Range/Units 16:17 17:03 20:46 WBC 11.6 H (3.8-10.6) k/uL RBC 5.48 H (3.80-5.40) m/uL Hgb 10.7 L (11.4-16.0) gm/dL MCV 63.7 L (80.0-100.0) fL MCH 19.5 L (25.0-35.0) pg MCHC 30.7 L (31.0-37.0) g/dL Neutrophils # 9.1 H (1.3-7.7) k/uL POC Glucose (mg/dL) 171 H 206 H (75-99) mg/dL 04/05/20 04/05/20 Range/Units 07:25 11:28 WBC (3.8-10.6) k/uL RBC (3.80-5.40) m/uL Hgb (11.4-16.0) gm/dL MCV (80.0-100.0) fL MCH (25.0-35.0) pg MCHC (31.0-37.0) g/dL Neutrophils # (1.3-7.7) k/uL POC Glucose (mg/dL) 134 H 182 H (75-99) mg/dL Assessment and Plan (1) Hip fracture, left Narrative/Plan: She will continue with routine postop orthopedic protocol including pain management, wound care, PT, DVT prophylaxis and medical management. She states that she has support at home and doesn't desire to go to ECF. Expect that she will transfer to home in next 1-2 days Current Visit: Yes Status: Acute Priority: Medium Code(s): S72.002A - FRACTURE OF UNSP PART OF NECK OF LEFT FEMUR, INIT SNOMED Code(s): 502369745 Time with Patient: Less than 30
[2020-04-05] MEDS: MORPHINE SULFATE 4 MG/ML SYRINGE IV PRN ×2 (16:47→21:16)
[2020-04-05 17:05] LABS: Glucose,Whole Blood 152 mg/dL (75-99)
[2020-04-05 20:34] LABS: Glucose,Whole Blood 192 mg/dL (75-99)
[2020-04-05] MEDS: SENNOSIDES-DOCUSATE SODIUM 1 EACH TAB PO SCH (21:17)
[2020-04-05] MEDS: MAGNESIUM OXIDE 400 MG TAB PO SCH (21:18)
[2020-04-06] MEDS: MORPHINE SULFATE 4 MG/ML SYRINGE IV PRN (05:25)
[2020-04-06 07:07] LABS: Basophils % (A) 1 %; Eosinophils # (A) 0.1 k/uL (0-0.7); Eosinophils % (A) 2 %; HCT 27.1 % (34.0-46.0); Lymphocytes % (A) 13 %; MCH 20.4 pg (25.0-35.0); MCHC 33.1 g/dL (31.0-37.0); MCV 61.5 fL (80.0-100.0); Mean Platelet Volume 8.1; Microcytosis Marked; Monocytes # (A) 0.3 k/uL (0-1.0); Monocytes % (A) 4 %; Neutrophils # (A) 6.1 k/uL (1.3-7.7); Neutrophils % (A) 80 %; Platelet Count 161 k/uL (150-450); WBC 7.6 k/uL (3.8-10.6)
[2020-04-06 07:28] LABS: Glucose,Whole Blood 162 mg/dL (75-99)
[2020-04-06] MEDS: SODIUM CHLORIDE 0.9% 1,000 ML IV SCH ×2 (07:53→15:14)
[2020-04-06] MEDS: amLODIPine 10 MG TAB PO SCH (07:54)
[2020-04-06] MEDS: LINAGLIPTIN 5 MG TABLET PO SCH (07:54)
[2020-04-06] MEDS: PANTOPRAZOLE 40 MG/10 ML VIAL IV SCH (07:54)
[2020-04-06] MEDS: ZINC SULFATE 220 MG CAP PO SCH (07:54)
[2020-04-06] MEDS: ASPIRIN 81 MG PO SCH ×2 (07:54→21:30)
[2020-04-06] MEDS: ASCORBIC ACID 500 MG TAB PO SCH (07:54)
[2020-04-06] MEDS: ENOXAPARIN 40 MG/0.4 ML SYRINGE SQ SCH (07:54)
[2020-04-06] MEDS: metFORMIN 500 MG TAB PO SCH ×2 (07:54→17:45)
[2020-04-06] MEDS: CHOLECALCIFEROL 400 UNIT TAB PO SCH (07:54)
[2020-04-06] MEDS: HYDROcodone/APAP 5-325MG 1 EACH TAB PO PRN ×3 (07:58→21:29)
--- NOTE | 2020-04-06 10:55 | P.PN ---
Progress Note - Text Progress Note Date: 04/05/20 - Chief Complaint Left hip pain Consultation: This is a very pleasant 79-year-old patient of Dr. Whalen. Chronic stable medical conditions include diabetes, GERD, hyperlipidemia hypertension, osteoarthritis, thalassemia minor. Patient tripped mechanically taking off fall on the the left hip. Having significant pain. Did confirm to have a left femur neck fracture. Has no prior cardiac history and rather active. On September the day. The patient to go to surgery. Does not normally have any chest pain or shortness breath. Has a fair exercise tolerance. Patient was seen following surgery. Postprocedure laying in bed comfortable. No chest pain or shortness of breath. Pain control. Today-pain reasonably controlled. Did work with therapy. No nausea vomiting. Did tolerate a diet. No chest pain or shortness of breath Review of systems: Was done for constitutional, cardiovascular, GI, pulmonary. relevant finding as above Current medications reviewed in today's electronic records Physical examination: VITAL SIGNS: 98.1, 91, 17, 116/68, 94% room air GENERAL: BMI 32, comfortable, awake. EYES: Pupils equal. Conjunctiva normal. NECK: JVD not raised; masses not palpable. HEART: First and second heart sounds are normal; no edema. LUNGS: Respiratory rate normal; clear to auscultation. ABDOMEN: Soft, nontender, liver spleen not palpable, no masses palpable. PSYCH: Alert and oriented x3; mood and affect normal. MUSCULAR skeletal: Dressing over the left hip. Evidence of OA in the hands asleep. INVESTIGATIONS, reviewed in the clinical context: White count 10.4 hemoglobin 10.5 platelets 276 potassium 4.5 creatinine 0.86 UA negative [id number], 115 EKG tracing personally reviewed by me-normal sinus rhythm Chest x-ray film personally reviewed by me-no obvious abnormality Assessment and plan -Left femur neck fracture secondary to fall. Status post repair with iron hip screw. Received IV Ancef for infection prophylaxis -Diabetes mellitus type 2 Continue oxygen to, metformin follow Accu-Cheks -GERD Continue Protonix -Hyperlipidemia Diet-controlled -Essential hypertension Continue with Norvasc -Primary osteoarthritis Pain medications when necessary -Thalassemia minor -Obesity BMI 32 Follow with PCP -Post hip repair prophylaxis Aspirin per Dr. Ramos Additionally: Care was discussed with the patient. Questions were answered. Continue current medications. Follow with Dr. Whalen upon discharge Thank Dr. Ramos
[2020-04-06 12:03] LABS: Glucose,Whole Blood 151 mg/dL (75-99)
--- NOTE | 2020-04-06 12:41 | P.PN ---
Subjective Progress Note Date: 04/06/20 Principal diagnosis: Left Hip fracture Patient is seen at bedside this morning. She is postop day #2 from left gamma nail for left IT fracture. She has pain at the surgical site as expected but denies any new complaints. She denies numbness, tingling or calf pain. Review of systems is negative for fever, chills, chest pain, shortness of breath or other Objective - Vital Signs Vital signs: Vital Signs Temp 98.6 F 04/06/20 08:00 Pulse 110 H 04/06/20 08:00 Resp 20 04/06/20 08:00 BP 125/74 04/06/20 08:00 Pulse Ox 95 04/06/20 08:00 Intake & Output 04/05/20 04/06/20 04/06/20 18:59 06:59 18:59 Intake Total 2180 Output Total 900 375 Balance 1280 -375 Intake: Intake, IV Titration 600 Amount Sodium Chloride 0.9% 100 600 ml @ 0 mls/hr IV [email or web address] Rx#:[id number] Oral 1580 Output: Urine 900 375 Other: Voiding Method Indwelling Catheter Indwelling Catheter Indwelling Catheter # Voids 1 # Bowel Movements 0 - Exam Inspection reveals a benign surgical wound. There is no active bleeding or drainage. Neurovascular status is intact throughout the lower extremity with motor and sensation fully intact. Calf is soft and nontender. 2+ dorsalis pedis pulse and less than 2 second cap refill is present. - Constitutional General appearance: Present: no acute distress - Labs CBC & Chem 7: 04/06/20 06:00 04/03/20 19:06 Labs: Abnormal Lab Results - Last 24 Hours (Table) 04/05/20 04/05/20 04/06/20 Range/Units 17:04 20:31 06:00 Hgb 9.0 L D (11.4-16.0) gm/dL Hct 27.1 L (34.0-46.0) % MCV 61.5 L (80.0-100.0) fL MCH 20.4 L (25.0-35.0) pg POC Glucose (mg/dL) 152 H 192 H (75-99) mg/dL 04/06/20 04/06/20 Range/Units 07:14 11:30 Hgb (11.4-16.0) gm/dL Hct (34.0-46.0) % MCV (80.0-100.0) fL MCH (25.0-35.0) pg POC Glucose (mg/dL) 162 H 151 H (75-99) mg/dL Assessment and Plan (1) Hip fracture, left Narrative/Plan: She will continue with routine postop orthopedic protocol including pain management, wound care, PT, DVT prophylaxis and medical management. She states that she has support at home and doesn't desire to go to [facility]CF. Expect that she will transfer to home in next 1-2 days Current Visit: Yes Status: Acute Priority: Medium Code(s): S72.002A - FRACTURE OF UNSP PART OF NECK OF LEFT FEMUR, INIT SNOMED Code(s): 915241878 Time with Patient: Less than 30
[2020-04-06 16:48] LABS: Glucose,Whole Blood 183 mg/dL (75-99)
[2020-04-06 20:34] LABS: Glucose,Whole Blood 204 mg/dL (75-99)
[2020-04-06] MEDS: SENNOSIDES-DOCUSATE SODIUM 1 EACH TAB PO SCH (21:30)
[2020-04-06] MEDS: MAGNESIUM OXIDE 400 MG TAB PO SCH (21:31)
--- NOTE | 2020-04-06 23:20 | P.PN ---
Progress Note - Text Progress Note Date: 04/06/20 - Chief Complaint Left hip pain Consultation: This is a very pleasant 79-year-old patient of Dr. Whalen. Chronic stable medical conditions include diabetes, GERD, hyperlipidemia hypertension, osteoarthritis, thalassemia minor. Patient tripped mechanically taking off fall on the the left hip. Having significant pain. Did confirm to have a left femur neck fracture. Has no prior cardiac history and rather active. On September the day. The patient to go to surgery. Does not normally have any chest pain or shortness breath. Has a fair exercise tolerance. Patient was seen following surgery. Today-did eat her breakfast. Did work with therapy. Pain at the operative site. No chest pain or short of breath. Review of systems: Was done for constitutional, cardiovascular, GI, pulmonary. relevant finding as above Active Medications Hydrocodone Bitart/Acetaminophen (Hydrocodone/Apap 5-325mg 1 Each Tab) 1 each PO Q6HR PRN PRN Reason: Pain Scale 1 to 5 Last Admin: 04/05/20 13:22 Dose: 1 each Documented by: Hydrocodone Bitart/Acetaminophen (Hydrocodone/Apap 5-325mg 1 Each Tab) 2 each PO Q6HR PRN PRN Reason: Pain Scale 6 to 10 Last Admin: 04/06/20 21:29 Dose: 2 each Documented by: Amlodipine Besylate (Amlodipine 10 Mg Tab) 10 mg PO DAILY [facility] Last Admin: 04/06/20 07:54 Dose: 10 mg Documented by: Ascorbic Acid (Ascorbic Acid 500 Mg Tab) 500 mg PO DAILY [facility] Last Admin: 04/06/20 07:54 Dose: 500 mg Documented by: Aspirin (Aspirin 81 Mg) 81 mg PO BID [facility] Last Admin: 04/06/20 21:30 Dose: 81 mg Documented by: Cholecalciferol (Cholecalciferol 400 Unit Tab) 400 unit PO DAILY [facility] Last Admin: 04/06/20 07:54 Dose: 400 unit Documented by: Enoxaparin Sodium (Enoxaparin 40 Mg/0.4 Ml Syringe) 40 mg SQ DAILY [facility] Last Admin: 04/06/20 07:54 Dose: 40 mg Documented by: Hydromorphone HCl (Hydromorphone 0.5 Mg/0.5 Ml Syringe) 0.5 mg IVP Q3HR PRN PRN Reason: Moderate Pain Last Admin: 04/05/20 03:49 Dose: 0.5 mg Documented by: Sodium Chloride (Saline 0.9%) 1,000 mls @ 100 mls/hr IV .Q10H [facility] Last Admin: 04/06/20 15:14 Dose: Not Given Documented by: Linagliptin (Linagliptin 5 Mg Tablet) 5 mg PO DAILY [facility] Last Admin: 04/06/20 07:54 Dose: 5 mg Documented by: Magnesium Oxide (Magnesium Oxide 400 Mg Tab) 400 mg PO HS [facility] Last Admin: 04/06/20 21:31 Dose: 400 mg Documented by: Metformin HCl (Metformin 500 Mg Tab) 1,000 mg PO BID-W/MEALS [facility] Last Admin: 04/06/20 17:45 Dose: 1,000 mg Documented by: Morphine Sulfate (Morphine Sulfate 4 Mg/Ml Syringe) 4 mg IV Q4HR PRN PRN Reason: Severe Pain Last Admin: 04/06/20 05:25 Dose: 4 mg Documented by: Naloxone HCl (Naloxone 0.4 Mg/Ml 1 Ml Vial) 0.2 mg IV Q2M PRN PRN Reason: Opioid Reversal Ondansetron HCl (Ondansetron 4 Mg/2 Ml Vial) 4 mg IVP Q8HR PRN PRN Reason: Nausea And Vomiting Last Admin: 04/05/20 16:48 Dose: 4 mg Documented by: Ondansetron HCl (Ondansetron 4 Mg/2 Ml Vial) 4 mg IVP Q24HR PRN PRN Reason: Nausea And Vomiting Pantoprazole Sodium (Pantoprazole 40 Mg Tablet) 40 mg PO DAILY [facility] Senna/Docusate Sodium (Sennosides-Docusate Sodium 1 Each Tab) 2 each PO HS [facility] Last Admin: 04/06/20 21:30 Dose: 2 each Documented by: Zinc Sulfate (Zinc Sulfate 220 Mg Cap) 220 mg PO DAILY [facility] Last Admin: 04/06/20 07:54 Dose: 220 mg Documented by: Physical examination: VITAL SIGNS: 97.7, 117, 18, 104/65, 88% on 2.5 L GENERAL: BMI 32, laying in bed, comfortable EYES: Pupils equal. Conjunctiva normal. NECK: JVD not raised; masses not palpable. HEART: First and second heart sounds are normal; no edema. LUNGS: Respiratory rate normal; clear to auscultation. ABDOMEN: Soft, nontender, liver spleen not palpable, no masses palpable. PSYCH: Alert and oriented x3; mood and affect normal. MUSCULAR skeletal: Dressing over the left hip. Evidence of OA in the hands asl eep. INVESTIGATIONS, reviewed in the clinical context: April 06: White count 7.6 hemoglobin 9 platelets 161 White count 10.4 hemoglobin 10.5 platelets 276 potassium 4.5 creatinine 0.86 UA negative [id number], 115 EKG tracing personally reviewed by me-normal sinus rhythm Chest x-ray film personally reviewed by me-no obvious abnormality Assessment and plan -Left femur neck fracture secondary to fall. Status post repair with iron hip screw. Received IV Ancef for infection prophylaxis -Diabetes mellitus type 2 Continue oxygen to, metformin follow Accu-Cheks -GERD Continue Protonix -Hyperlipidemia Diet-controlled -Essential hypertension Continue with Norvasc -Primary osteoarthritis Pain medications when necessary -Thalassemia minor -Obesity BMI 32 Follow with PCP -Post hip repair prophylaxis Aspirin per Dr. Ramos Additionally: Care was discussed with the patient. Continue current medications. Follow with Dr. Whalen upon discharge Thank Dr. Ramos
[2020-04-07] MEDS: SODIUM CHLORIDE 0.9% 1,000 ML IV SCH ×2 (04:15→14:45)
[2020-04-07 06:28] LABS: Glucose,Whole Blood 154 mg/dL (75-99)
[2020-04-07] MEDS: HYDROcodone/APAP 5-325MG 1 EACH TAB PO PRN ×3 (06:30→22:15)
[2020-04-07] MEDS: CHOLECALCIFEROL 400 UNIT TAB PO SCH (08:27)
[2020-04-07] MEDS: ASPIRIN 81 MG PO SCH ×2 (08:27→19:51)
[2020-04-07] MEDS: amLODIPine 10 MG TAB PO SCH (08:27)
[2020-04-07] MEDS: ENOXAPARIN 40 MG/0.4 ML SYRINGE SQ SCH (08:27)
[2020-04-07] MEDS: ZINC SULFATE 220 MG CAP PO SCH (08:29)
[2020-04-07] MEDS: ASCORBIC ACID 500 MG TAB PO SCH (08:29)
[2020-04-07] MEDS: metFORMIN 500 MG TAB PO SCH ×2 (08:29→17:52)
[2020-04-07] MEDS: PANTOPRAZOLE 40 MG TABLET PO SCH (08:30)
[2020-04-07] MEDS: LINAGLIPTIN 5 MG TABLET PO SCH (08:30)
[2020-04-07 11:35] LABS: Glucose,Whole Blood 162 mg/dL (75-99)
--- NOTE | 2020-04-07 12:37 | P.PN ---
Subjective Progress Note Date: 04/07/20 Principal diagnosis: Left Hip fracture Patient is seen at bedside this morning. She is postop day #3 from left gamma nail for left IT fracture. She has pain at the surgical site as expected but denies any new complaints. She denies numbness, tingling or calf pain. Review of systems is negative for fever, chills, chest pain, shortness of breath or other Objective - Vital Signs Vital signs: Vital Signs Temp 97.9 F 04/07/20 07:40 Pulse 108 H 04/07/20 08:32 Resp 16 04/07/20 08:32 BP 122/61 04/07/20 07:40 Pulse Ox 96 04/07/20 08:32 Intake & Output 04/06/20 04/07/20 04/07/20 18:59 06:59 18:59 Intake Total 240 Output Total 200 300 Balance 40 -300 Intake: Oral 240 Output: Urine 200 300 Other: Voiding Method Indwelling Catheter # Voids 1 # Bowel Movements 0 - Exam Inspection reveals a benign surgical wound. There is no active bleeding or drainage. Neurovascular status is intact throughout the lower extremity with motor and sensation fully intact. Calf is soft and nontender. 2+ dorsalis pedis pulse and less than 2 second cap refill is present. - Constitutional General appearance: Present: no acute distress - Labs CBC & Chem 7: 04/06/20 06:00 04/03/20 19:06 Labs: Abnormal Lab Results - Last 24 Hours (Table) 04/06/20 04/06/20 04/07/20 Range/Units 16:46 20:32 06:26 POC Glucose (mg/dL) 183 H 204 H 154 H (75-99) mg/dL 04/07/20 Range/Units 11:32 POC Glucose (mg/dL) 162 H (75-99) mg/dL Assessment and Plan (1) Hip fracture, left Narrative/Plan: She will continue with routine postop orthopedic protocol including pain management, wound care, PT, DVT prophylaxis and medical management. She states that she has support at home and doesn't desire to go to [facility]. Expect that she will transfer to home tomorrow Current Visit: Yes Status: Acute Priority: Medium Code(s): S72.002A - FRACTURE OF UNSP PART OF NECK OF LEFT FEMUR, INIT SNOMED Code(s): 296191400 Time with Patient: Less than 30
[2020-04-07 17:18] LABS: Glucose,Whole Blood 198 mg/dL (75-99)
[2020-04-07 18:50] LABS: Basophils % (A) 0 %; Eosinophils # (A) 0.2 k/uL (0-0.7); Eosinophils % (A) 3 %; HCT 27.2 % (34.0-46.0); HGB 8.6 gm/dL (11.4-16.0); Hypochromasia Slight; Lymphocytes % (A) 13 %; MCH 19.5 pg (25.0-35.0); MCHC 31.5 g/dL (31.0-37.0); MCV 61.7 fL (80.0-100.0); Mean Platelet Volume 8.5; Microcytosis Marked; Monocytes # (A) 0.3 k/uL (0-1.0); Monocytes % (A) 4 %; Neutrophils # (A) 5.6 k/uL (1.3-7.7); Neutrophils % (A) 78 %; Platelet Count 219 k/uL (150-450); RBC 4.41 m/uL (3.80-5.40); RDW 15.1 % (11.5-15.5); WBC 7.2 k/uL (3.8-10.6)
[2020-04-07 18:59] LABS: INR 0.9 (<1.2); Partial Thromboplastin Time 25.4 sec (22.0-30.0); Prothrombin Time 9.7 sec (9.0-12.0)
[2020-04-07 19:14] LABS: ALT 10 U/L (4-34); AST 19 U/L (14-36); African American GFR (CKD) 90 (>60 ml/min/1.73 sqM); Albumin 3.2 g/dL (3.5-5.0); Albumin/Globulin Ratio 1.2; Alkaline Phosphatase 72 U/L (38-126); Anion Gap 9 mmol/L; Blood Urea Nitrogen 19 mg/dL (7-17); Calcium 8.6 mg/dL (8.4-10.2); Carbon Dioxide 21 mmol/L (22-30); Chloride 99 mmol/L (98-107); Globulin 2.7 g/dL; Glucose 168 mg/dL (74-99); Non-African American GFR(CKD) 78 (>60 ml/min/1.73 sqM); Potassium 4.4 mmol/L (3.5-5.1); Sodium 129 mmol/L (137-145); Total Bilirubin 0.4 mg/dL (0.2-1.3); Total Protein 5.9 g/dL (6.3-8.2)
[2020-04-07 19:36] LABS: Poikilocytosis (M) Present
[2020-04-07] MEDS: SENNOSIDES-DOCUSATE SODIUM 1 EACH TAB PO SCH (19:51)
[2020-04-07] MEDS: MAGNESIUM OXIDE 400 MG TAB PO SCH (19:51)
[2020-04-07 20:40] LABS: Glucose,Whole Blood 181 mg/dL (75-99)
--- NOTE | 2020-04-08 00:03 | P.PN ---
Progress Note - Text Progress Note Date: 04/07/20 - Chief Complaint Left hip pain Consultation: This is a very pleasant 79-year-old patient of Dr. Whalen. Chronic stable medical conditions include diabetes, GERD, hyperlipidemia hypertension, osteoarthritis, thalassemia minor. Patient tripped mechanically taking off fall on the the left hip. Having significant pain. Did confirm to have a left femur neck fracture. Has no prior cardiac history and rather active. On September the day. The patient to go to surgery. Does not normally have any chest pain or shortness breath. Has a fair exercise tolerance. Patient was seen following surgery. Today-sided tired this morning. Short of breath. A carotid pulse was irregular. EKG did confirm atrial fibrillation. Cardiology was consulted. Review of systems: Was done for constitutional, cardiovascular, GI, pulmonary. relevant finding as above Active Medications Hydrocodone Bitart/Acetaminophen (Hydrocodone/Apap 5-325mg 1 Each Tab) 1 each PO Q6HR PRN PRN Reason: Pain Scale 1 to 5 Last Admin: 04/05/20 13:22 Dose: 1 each Documented by: Hydrocodone Bitart/Acetaminophen (Hydrocodone/Apap 5-325mg 1 Each Tab) 2 each PO Q6HR PRN PRN Reason: Pain Scale 6 to 10 Last Admin: 04/07/20 22:15 Dose: 2 each Documented by: Amlodipine Besylate (Amlodipine 10 Mg Tab) 10 mg PO DAILY [facility] Last Admin: 04/07/20 08:27 Dose: 10 mg Documented by: Ascorbic Acid (Ascorbic Acid 500 Mg Tab) 500 mg PO DAILY [facility] Last Admin: 04/07/20 08:29 Dose: 500 mg Documented by: Aspirin (Aspirin 81 Mg) 81 mg PO BID [facility] Last Admin: 04/07/20 19:51 Dose: 81 mg Documented by: Cholecalciferol (Cholecalciferol 400 Unit Tab) 400 unit PO DAILY [facility] Last Admin: 04/07/20 08:27 Dose: 400 unit Documented by: Enoxaparin Sodium (Enoxaparin 40 Mg/0.4 Ml Syringe) 40 mg SQ DAILY [facility] Last Admin: 04/07/20 08:27 Dose: 40 mg Documented by: Hydromorphone HCl (Hydromorphone 0.5 Mg/0.5 Ml Syringe) 0.5 mg IVP Q3HR PRN PRN Reason: Moderate Pain Last Admin: 04/05/20 03:49 Dose: 0.5 mg Documented by: Linagliptin (Linagliptin 5 Mg Tablet) 5 mg PO DAILY [facility] Last Admin: 04/07/20 08:30 Dose: 5 mg Documented by: Magnesium Oxide (Magnesium Oxide 400 Mg Tab) 400 mg PO HS [facility] Last Admin: 04/07/20 19:51 Dose: 400 mg Documented by: Metformin HCl (Metformin 500 Mg Tab) 1,000 mg PO BID-W/MEALS [facility] Last Admin: 04/07/20 17:52 Dose: 1,000 mg Documented by: Morphine Sulfate (Morphine Sulfate 4 Mg/Ml Syringe) 4 mg IV Q4HR PRN PRN Reason: Severe Pain Last Admin: 04/06/20 05:25 Dose: 4 mg Documented by: Naloxone HCl (Naloxone 0.4 Mg/Ml 1 Ml Vial) 0.2 mg IV Q2M PRN PRN Reason: Opioid Reversal Ondansetron HCl (Ondansetron 4 Mg/2 Ml Vial) 4 mg IVP Q8HR PRN PRN Reason: Nausea And Vomiting Last Admin: 04/05/20 16:48 Dose: 4 mg Documented by: Ondansetron HCl (Ondansetron 4 Mg/2 Ml Vial) 4 mg IVP Q24HR PRN PRN Reason: Nausea And Vomiting Pantoprazole Sodium (Pantoprazole 40 Mg Tablet) 40 mg PO DAILY [facility] Last Admin: 04/07/20 08:30 Dose: 40 mg Documented by: Senna/Docusate Sodium (Sennosides-Docusate Sodium 1 Each Tab) 2 each PO [facility] Last Admin: 04/07/20 19:51 Dose: 2 each Documented by: Zinc Sulfate (Zinc Sulfate 220 Mg Cap) 220 mg PO DAILY [facility] Last Admin: 04/07/20 08:29 Dose: 220 mg Documented by: Physical examination: VITAL SIGNS: 97.9, 120, 18, 135/71, 98% room air GENERAL: Sitting up, tired EYES: Pupils equal. Conjunctiva normal. NECK: JVD not raised; masses not palpable. HEART: Heart sounds irregular; no edema. LUNGS: Respiratory rate normal; clear to auscultation. ABDOMEN: Soft, nontender, liver spleen not palpable, no masses palpable. PSYCH: Alert and oriented x3; mood and affect normal. MUSCULAR skeletal: Dressing over the left hip. Evidence of OA in the hands asleep. INVESTIGATIONS, reviewed in the clinical context: April 07: Hemoglobin 8.6 sodium 129 potassium 4.4 creatinine 0.73 EKG tracing-atrial fibrillation rate uncontrolled April 06: White count 7.6 hemoglobin 9 platelets 161 White count 10.4 hemoglobin 10.5 platelets 276 potassium 4.5 creatinine 0.86 UA negative [id number], 115 EKG tracing personally reviewed by me-normal sinus rhythm Chest x-ray film personally reviewed by me-no obvious abnormality Assessment and plan -Left femur neck fracture secondary to fall. Status post repair with iron hip screw. Received IV Ancef for infection prophylaxis -Diabetes mellitus type 2 Continue oxygen to, metformin follow Accu-Cheks -GERD Continue Protonix -Hyperlipidemia Diet-controlled -Essential hypertension Continue with Norvasc -Primary osteoarthritis Pain medications when necessary -Thalassemia minor -Obesity BMI 32 Follow with PCP -Post hip repair prophylaxis Aspirin per Dr. Ramos -New onset atrial fibrillation with rapid ventricular rate Cardiogenic consulted Additionally: EKG done. Cardiogenic consulted. Start Lopressor 25 mg twice a day. Thank Dr. Ramos
[2020-04-08] MEDS: METOPROLOL TARTRATE 25 MG TAB PO SCH ×3 (00:14→19:27)
[2020-04-08] MEDS: HYDROcodone/APAP 5-325MG 1 EACH TAB PO PRN ×4 (02:38→23:01)
[2020-04-08 07:21] LABS: Glucose,Whole Blood 159 mg/dL (75-99)
[2020-04-08] MEDS: amLODIPine 10 MG TAB PO SCH (08:43)
[2020-04-08] MEDS: ASCORBIC ACID 500 MG TAB PO SCH (08:43)
[2020-04-08] MEDS: PANTOPRAZOLE 40 MG TABLET PO SCH (08:43)
[2020-04-08] MEDS: ASPIRIN 81 MG PO SCH (08:43)
[2020-04-08] MEDS: LINAGLIPTIN 5 MG TABLET PO SCH (08:44)
[2020-04-08] MEDS: CHOLECALCIFEROL 400 UNIT TAB PO SCH (08:44)
[2020-04-08] MEDS: ZINC SULFATE 220 MG CAP PO SCH (08:44)
[2020-04-08] MEDS: ENOXAPARIN 40 MG/0.4 ML SYRINGE SQ SCH (08:44)
[2020-04-08] MEDS: metFORMIN 500 MG TAB PO SCH ×2 (08:44→17:23)
[2020-04-08 11:21] LABS: Glucose,Whole Blood 140 mg/dL (75-99)
--- NOTE | 2020-04-08 12:20 | P.CRDCN ---
History of Present Illness History of present illness: HISTORY OF PRESENTING ILLNESS This is a pleasant 79-year-old female past medical history significant for diabetes mellitus type 2, GERD, hyperlipidemia, hypertension, osteoarthritis, thalassemia minor and recent mechanical fall. 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 We have been asked to see in consultation for new-onset atrial fibrillation. Patient admits that she was walking and then follow which she states was a trip. Denies any lightheadedness or syncope. No prior history of syncope. She was found to have a left hip fracture status post left hip screw fixation on 04/04/[address] Ramos. Patient's initial EKG showed sinus rhythm with frequent PACs. Yesterday patient was noted to be in atrial fibrillation and patient was placed on metoprolol 25 mg twice a day. Her heart rates have been controlled. She denies any chest pain or pressure. No shortness breath. Patient states that prior to this fall she had been fairly active able to do all of her activities of daily living without any inhibition. She believes she had a stress test 5-6 years ago however does not recall any recent cardiac testing. She denies any history of stroke or TIA. She denies any hematochezia or melena. Patient denies any palpitations and cannot tell that she is actually in atrial fibrillation. DIAGNOSTICS EKG initially showed sinus rhythm, frequent PACs, normal axis, nonspecific mild ST depressions inferiorly. EKG yesterday and today both reviewed showing clear atrial fibrillation without significant ST or T wave abnormalities. Chest xray no acute cardio pulmonary disease, atheromatous aorta. Laboratory reviewed, white blood cells 7.2, hemoglobin 8.6, platelets 219, sodium 129, creatinine 0.73, baseline hemoglobin approximately 10.5, MCV 62.1. Current cardiac medications include amlodipine 10 mg daily, aspirin 81 mg daily, metoprolol 25 mg twice a day. REVIEW OF SYSTEMS At the time of my exam: CONSTITUTIONAL: Denies fever or chills. CARDIOVASCULAR: Denies chest pain, shortness of breath, orthopnea, PND or palpitations. RESPIRATORY: Denies cough. GASTROINTESTINAL: Denies abdominal pain, diarrhea, constipation, nausea or vomiting. MUSCULOSKELETAL: Denies myalgias. NEUROLOGIC: Denies numbness, tingling or weakness. ENDOCRINE: Denies fatigue, weight change, polydipsia or polyurina. GENITOURINARY: Denies burning, hematuria or urgency with micturation. HEMATOLOGIC: Denies history of anemia or bleeding. Positive history of thalassemia minor PHYSICAL EXAMINATION Blood pressure 110/67, heart rate 99 afebrile and maintaining oxygen saturation on room air. CONSTITUTIONAL: No apparent distress. HEENT: Head is normocephalic. Pupils are equal, round. Sclerae anicteric. Mucous membranes of the mouth are moist. No JVD. No carotid bruit. CHEST EXAMINATION: Lungs are clear to auscultation. No chest wall tenderness is noted on palpation or with deep breathing. HEART EXAMINATION: Irregularly irregular rate and rhythm. S1, S2 heard. No murmurs, gallops or rub. ABDOMEN: Soft, nontender. Positive bowel sounds. EXTREMITIES: 2+ peripheral pulses, no lower extremity edema and no calf tenderness. NEUROLOGIC EXAMINATION: Patient is awake, alert and oriented x3. ASSESSMENT 1. Paroxysmal atrial fibrillation, currently atrial fibrillation with co ntrolled ventricular rates 2. Mechanical fall 3. Left hip fracture status post screw fixation 04/04/2020 4. Essential hypertension 5. Diabetes mellitus type 2 6. Thalassemia minor 7. Anemia likely component of thalassemia minor and mild postop anemia. No signs or symptoms of bleeding, hematochezia or melena PLAN Patient overall appears asymptomatic from her atrial fibrillation. We did repe at an EKG as her initial EKG showed sinus rhythm with frequent PACs however repeat EKG does show atrial fibrillation. Agree with metoprolol 25 mg twice a day which has been controlling her rate. We discussed anticoagulation and patient is agreeable. We will send a prescription for Eliquis 5mg bid. Stop aspirin. Patient stable for discharge home. We will place an order for echocardiogram however this should not hold patient up from being discharged. Past Medical History Past Medical History: Blood Disorder, Diabetes Mellitus, GERD/Reflux, Hearing Disorder / Deafness, Hyperlipidemia, Hypertension, Osteoarthritis (OA) Additional Past Medical History / Comment(s): BACK PAIN, THALASSEMIA MINOR. History of Any Multi-Drug Resistant Organisms: None Reported Past Surgical History: Hysterectomy, Orthopedic Surgery, Tonsillectomy Additional Past Surgical History / Comment(s): right elbow surgery, CATARACT LEFT EYE (03/28/16) Past Anesthesia/Blood Transfusion Reactions: No Reported Reaction Past Psychological History: No Psychological Hx Reported Smoking Status: Never smoker Past Alcohol Use History: None Reported Past Drug Use History: None Reported - Past Family History Mother Family Medical History: No Reported History Additional Family Medical History / Comment(s): THALLISEMIA AND SIBLINGS ALSO. Medications and Allergies Home Medications Medication Instructions Recorded Confirmed Type amLODIPine [Norvasc] 10 mg PO DAILY 03/27/16 04/03/20 History metFORMIN HCL [Glucophage] 1,000 mg PO BID 03/27/16 04/03/20 History sitaGLIPtin PHOSPHATE [Januvia] 100 mg PO DAILY 03/27/16 04/03/20 History Co Q-10 1 tab PO DAILY 05/12/16 04/03/20 History New Era-3 Fatty Acids/Fish Oil [Fish 1 cap PO HS 05/12/16 04/03/20 History Oil 1,000 mg Softgel] Cinnamon Bark [Cinnamon] 500 mg PO DAILY 07/16/18 04/03/20 History Magnesium(Unknown) 1 tab PO HS 07/16/18 04/03/20 History Turmeric Root Extract [Turmeric] 500 mg PO HS 07/16/18 04/03/20 History Vitamin D3(Unknown) 1 tab PO DAILY 07/16/18 04/03/20 History Red Yeast Rice 600 mg PO DAILY 04/03/20 04/03/20 History Vitamin C(Unknown) 1 tab PO DAILY 04/03/20 04/03/20 History Zinc 50 mg PO DAILY 04/03/20 04/03/20 History Apixaban [Eliquis] 5 mg PO DAILY #60 tablet 04/08/20 Rx Allergies Allergy/AdvReac Type Severity Reaction Status Date / Time Penicillins Allergy Rash/Hives Verified 04/03/20 20:30 sulfamethoxazole Allergy Rash/Hives Verified 04/03/20 20:30 [From Bactrim] trimethoprim [From Bactrim] Allergy Rash/Hives Verified 04/03/20 20:30 Physical Exam Vitals: Vital Signs Temp Pulse Resp BP Pulse Ox 04/08/20 08:00 97.7 F 99 20 110/67 97 04/08/20 02:18 97.9 F 82 17 129/76 97 04/07/20 20:22 98.1 F 111 H 17 150/79 97 04/07/20 14:50 97.9 F 116 H 18 135/71 98 Intake and Output 04/07/20 04/08/20 04/08/20 22:59 06:59 14:59 Other: Voiding Method Indwelling Catheter # Voids 2 1 Results 04/07/20 17:58 04/07/20 17:58 Cardiac Enzymes 04/07/20 Range/Units 17:58 AST 19 (14-36) U/L Coagulation 04/07/20 Range/Units 17:58 PT 9.7 (9.0-12.0) sec APTT 25.4 (22.0-30.0) sec CBC 04/07/20 Range/Units 17:58 WBC 7.2 (3.8-10.6) k/uL RBC 4.41 (3.80-5.40) m/uL Hgb 8.6 L (11.4-16.0) gm/dL Hct 27.2 L (34.0-46.0) % Plt Count 219 (150-450) k/uL Comprehensive Metabolic Panel 04/07/20 Range/Units 17:58 Sodium 129 L (137-145) mmol/L Potassium 4.4 (3.5-5.1) mmol/L Chloride 99 (98-107) mmol/L Carbon Dioxide 21 L (22-30) mmol/L BUN 19 H (7-17) mg/dL Creatinine 0.73 (0.52-1.04) mg/dL Glucose 168 H (74-99) mg/dL Calcium 8.6 (8.4-10.2) mg/dL AST 19 (14-36) U/L ALT 10 (4-34) U/L Alkaline Phosphatase 72 (38-126) U/L Total Protein 5.9 L (6.3-8.2) g/dL Albumin 3.2 L (3.5-5.0) g/dL Current Medications Generic Name Dose Route Start Last Admin Trade Name Freq PRN Reason Stop Dose Admin Hydrocodone Bitart/Acetaminophen 1 each 04/04/20 15:18 04/08/20 10:06 Hydrocodone/Apap 5-325mg 1 Each Tab PO 1 each Q6HR PRN Administration Pain Scale 1 to 5 Hydrocodone Bitart/Acetaminophen 2 each 04/04/20 15:18 04/08/20 02:38 Hydrocodone/Apap 5-325mg 1 Each Tab PO 2 each Q6HR PRN Administration Pain Scale 6 to 10 Amlodipine Besylate 10 mg 04/04/20 09:00 04/08/20 08:43 Amlodipine 10 Mg Tab PO 10 mg DAILY [facility] Administration Apixaban 5 mg 04/08/20 21:00 Apixaban 5 Mg Tab PO BID [facility] Ascorbic Acid 500 mg 04/04/20 11:30 04/08/20 08:43 Ascorbic Acid 500 Mg Tab PO 500 mg DAILY [facility] Administration Cholecalciferol 400 unit 04/04/20 11:30 04/08/20 08:44 Cholecalciferol 400 Unit Tab PO 400 unit DAILY [facility] Administration Hydromorphone HCl 0.5 mg 04/03/20 20:18 04/05/20 03:49 Hydromorphone 0.5 Mg/0.5 Ml Syringe IVP 0.5 mg Q3HR PRN Administration Moderate Pain Linagliptin 5 mg 04/04/20 09:00 04/08/20 08:44 Linagliptin 5 Mg Tablet PO 5 mg DAILY [facility] Administration Magnesium Oxide 400 mg 04/04/20 21:00 04/07/20 19:51 Magnesium Oxide 400 Mg Tab PO 400 mg HS [facility] Administration Metformin HCl 1,000 mg 04/03/20 21:00 04/08/20 08:44 Metformin 500 Mg Tab PO 1,000 mg BID-W/MEALS [facility] Administration Metoprolol Tartrate 25 mg 04/08/20 00:15 04/08/20 08:43 Metoprolol Tartrate 25 Mg Tab PO 25 mg BID [facility] Administration Morphine Sulfate 4 mg 04/03/20 20:18 04/06/20 05:25 Morphine Sulfate 4 Mg/Ml Syringe IV 4 mg Q4HR PRN Administration Severe Pain Naloxone HCl 0.2 mg 04/03/20 20:18 Naloxone 0.4 Mg/Ml 1 Ml Vial IV Q2M PRN Opioid Reversal Ondansetron HCl 4 mg 04/03/20 20:18 04/05/20 16:48 Ondansetron 4 Mg/2 Ml Vial IVP 4 mg Q8HR PRN Administration Nausea And Vomiting Ondansetron HCl 4 mg 04/04/20 15:18 Ondansetron 4 Mg/2 Ml Vial IVP Q24HR PRN Nausea And Vomiting Pantoprazole Sodium 40 mg 04/07/20 09:00 04/08/20 08:43 Pantoprazole 40 Mg Tablet PO 40 mg DAILY [facility] Administration Senna/Docusate Sodium 2 each 04/04/20 21:00 04/07/20 19:51 Sennosides-Docusate Sodium 1 Each Tab PO 2 each HS [facility] Administration Zinc Sulfate 220 mg 04/04/20 11:30 04/08/20 08:44 Zinc Sulfate 220 Mg Cap PO 220 mg DAILY [facility] Administration Intake and Output 04/07/20 04/08/20 04/08/20 22:59 06:59 14:59 Other: Voiding Method Indwelling Catheter # Voids 2 1 04/07/20 17:58 04/07/20 17:58
[2020-04-08] MEDS ORDERED: APIXABAN 5 MG TAB PO ONE (12:30)
[2020-04-08 13:12] VITALS: BMI 31.9
--- NOTE | 2020-04-08 16:05 | P.PN ---
Subjective Progress Note Date: 04/08/20 Principal diagnosis: Left Hip fracture Patient is seen at bedside this morning. She is postop day #4 from left gamma nail for left IT fracture. She has pain at the surgical site as expected but denies any new complaints. She has developed Afib and is being managed by cardiology. She denies numbness, tingling or calf pain. Review of systems is negative for fever, chills, chest pain, shortness of breath or other Objective - Vital Signs Vital signs: Vital Signs Temp 97.8 F 04/08/20 14:00 Pulse 81 04/08/20 14:00 Resp 20 04/08/20 14:00 BP 119/77 04/08/20 14:00 Pulse Ox 95 04/08/20 15:34 Intake & Output 04/07/20 04/08/20 04/08/20 18:59 06:59 18:59 Weight 89.811 kg Other: Voiding Method Indwelling Catheter # Voids 3 1 - Exam Inspection reveals a benign surgical wound. There is no active bleeding or drainage. Neurovascular status is intact throughout the lower extremity with motor and sensation fully intact. Calf is soft and nontender. 2+ dorsalis pedis pulse and less than 2 second cap refill is present. - Constitutional General appearance: Present: no acute distress - Labs CBC & Chem 7: 04/07/20 17:58 04/07/20 17:58 Labs: Abnormal Lab Results - Last 24 Hours (Table) 04/07/20 04/07/20 04/07/20 Range/Units 17:15 17:58 17:58 Hgb 8.6 L (11.4-16.0) gm/dL Hct 27.2 L (34.0-46.0) % MCV 61.7 L (80.0-100.0) fL MCH 19.5 L (25.0-35.0) pg Sodium 129 L (137-145) mmol/L Carbon Dioxide 21 L (22-30) mmol/L BUN 19 H (7-17) mg/dL Glucose 168 H (74-99) mg/dL POC Glucose (mg/dL) 198 H (75-99) mg/dL Total Protein 5.9 L (6.3-8.2) g/dL Albumin 3.2 L (3.5-5.0) g/dL 04/07/20 04/08/20 04/08/20 Range/Units 20:38 07:20 11:20 Hgb (11.4-16.0) gm/dL Hct (34.0-46.0) % MCV (80.0-100.0) fL MCH (25.0-35.0) pg Sodium (137-145) mmol/L Carbon Dioxide (22-30) mmol/L BUN (7-17) mg/dL Glucose (74-99) mg/dL POC Glucose (mg/dL) 181 H 159 H 140 H (75-99) mg/dL Total Protein (6.3-8.2) g/dL Albumin (3.5-5.0) g/dL Assessment and Plan (1) Hip fracture, left Narrative/Plan: She will continue with routine postop orthopedic protocol including pain management, wound care, PT, DVT prophylaxis and medical management. She states that she has support at home and doesn't desire to go to [facility]. Expect that she will transfer to home tomorrow if ok with cardiology and IM Current Visit: Yes Status: Acute Priority: Medium Code(s): S72.002A - FRACTURE OF UNSP PART OF NECK OF LEFT FEMUR, INIT SNOMED Code(s): 127784632 Time with Patient: Less than 30
[2020-04-08 17:13] LABS: Glucose,Whole Blood 160 mg/dL (75-99)
[2020-04-08] MEDS: MAGNESIUM OXIDE 400 MG TAB PO SCH (19:27)
[2020-04-08] MEDS: SENNOSIDES-DOCUSATE SODIUM 1 EACH TAB PO SCH (19:27)
[2020-04-08] MEDS: APIXABAN 5 MG TAB PO SCH (19:27)
[2020-04-08 19:37] LABS: Glucose,Whole Blood 152 mg/dL (75-99)
--- NOTE | 2020-04-08 23:10 | P.PN ---
Progress Note - Text Progress Note Date: 04/08/20 - Chief Complaint Left hip pain Consultation: This is a very pleasant 79-year-old patient of Dr. Whalen. Chronic stable medical conditions include diabetes, GERD, hyperlipidemia hypertension, osteoarthritis, thalassemia minor. Patient tripped mechanically taking off fall on the the left hip. Having significant pain. Did confirm to have a left femur neck fracture. Has no prior cardiac history and rather active. On September the day. The patient to go to surgery. Does not normally have any chest pain or shortness breath. Has a fair exercise tolerance. Patient was seen following surgery. Patient has a new onset of atrial fibrillation. Started on beta maximilian. Today-feeling better this morning. Remains in A. fib. Heart rate better controlled. A bit tired. Tolerating diet Review of systems: Was done for constitutional, cardiovascular, GI, pulmonary. relevant finding as above Active Medications Hydrocodone Bitart/Acetaminophen (Hydrocodone/Apap 5-325mg 1 Each Tab) 1 each PO Q6HR PRN PRN Reason: Pain Scale 1 to 5 Last Admin: 04/08/20 10:06 Dose: 1 each Documented by: Hydrocodone Bitart/Acetaminophen (Hydrocodone/Apap 5-325mg 1 Each Tab) 2 each PO Q6HR PRN PRN Reason: Pain Scale 6 to 10 Last Admin: 04/08/20 23:01 Dose: 2 each Documented by: Amlodipine Besylate (Amlodipine 10 Mg Tab) 10 mg PO DAILY [facility] Last Admin: 04/08/20 08:43 Dose: 10 mg Documented by: Apixaban (Apixaban 5 Mg Tab) 5 mg PO BID [facility] Last Admin: 04/08/20 19:27 Dose: 5 mg Documented by: Ascorbic Acid (Ascorbic Acid 500 Mg Tab) 500 mg PO DAILY [facility] Last Admin: 04/08/20 08:43 Dose: 500 mg Documented by: Cholecalciferol (Cholecalciferol 400 Unit Tab) 400 unit PO DAILY [facility] Last Admin: 04/08/20 08:44 Dose: 400 unit Documented by: Hydromorphone HCl (Hydromorphone 0.5 Mg/0.5 Ml Syringe) 0.5 mg IVP Q3HR PRN PRN Reason: Moderate Pain Last Admin: 04/05/20 03:49 Dose: 0.5 mg Documented by: Linagliptin (Linagliptin 5 Mg Tablet) 5 mg PO DAILY [facility] Last Admin: 04/08/20 08:44 Dose: 5 mg Documented by: Magnesium Oxide (Magnesium Oxide 400 Mg Tab) 400 mg PO HS [facility] Last Admin: 04/08/20 19:27 Dose: 400 mg Documented by: Metformin HCl (Metformin 500 Mg Tab) 1,000 mg PO BID-W/MEALS [facility] Last Admin: 04/08/20 17:23 Dose: 1,000 mg Documented by: Metoprolol Tartrate (Metoprolol Tartrate 25 Mg Tab) 25 mg PO BID [facility] Last Admin: 04/08/20 19:27 Dose: 25 mg Documented by: Morphine Sulfate (Morphine Sulfate 4 Mg/Ml Syringe) 4 mg IV Q4HR PRN PRN Reason: Severe Pain Last Admin: 04/06/20 05:25 Dose: 4 mg Documented by: Naloxone HCl (Naloxone 0.4 Mg/Ml 1 Ml Vial) 0.2 mg IV Q2M PRN PRN Reason: Opioid Reversal Ondansetron HCl (Ondansetron 4 Mg/2 Ml Vial) 4 mg IVP Q8HR PRN PRN Reason: Nausea And Vomiting Last Admin: 04/05/20 16:48 Dose: 4 mg Documented by: Ondansetron HCl (Ondansetron 4 Mg/2 Ml Vial) 4 mg IVP Q24HR PRN PRN Reason: Nausea And Vomiting Pantoprazole Sodium (Pantoprazole 40 Mg Tablet) 40 mg PO DAILY [facility] Last Admin: 04/08/20 08:43 Dose: 40 mg Documented by: Senna/Docusate Sodium (Sennosides-Docusate Sodium 1 Each Tab) 2 each PO HS [facility] Last Admin: 04/08/20 19:27 Dose: 2 each Documented by: Zinc Sulfate (Zinc Sulfate 220 Mg Cap) 220 mg PO DAILY [facility] Last Admin: 04/08/20 08:44 Dose: 220 mg Documented by: Physical examination: VITAL SIGNS: 97.9, 99, 20, 1 10 x 67, 97% room air GENERAL: Sitting up, in a chair, EYES: Pupils equal. Conjunctiva normal. NECK: JVD not raised; masses not palpable. HEART: Heart sounds irregular; no edema. LUNGS: Respiratory rate normal; clear to auscultation. ABDOMEN: Soft, nontender, liver spleen not palpable, no masses palpable. PSYCH: Alert and oriented x3; mood and affect normal. MUSCULAR skeletal: Dressing over the left hip. Evidence of OA in the hands. INVESTIGATIONS, reviewed in the clinical context: April 07: Hemoglobin 8.6 sodium 129 potassium 4.4 creatinine 0.73 EKG tracing-atrial fibrillation rate uncontrolled April 06: White count 7.6 hemoglobin 9 platelets 161 White count 10.4 hemoglobin 10.5 platelets 276 potassium 4.5 creatinine 0.86 UA negative [id number], 115 EKG tracing personally reviewed by me-normal sinus rhythm Chest x-ray film personally reviewed by me-no obvious abnormality Assessment and plan -Left femur neck fracture secondary to fall. Status post repair with iron hip screw. Received IV Ancef for infection prophylaxis -Diabetes mellitus type 2 Continue oxygen to, metformin follow Accu-Cheks -New onset atrial fibrillation Started on beta maximilian. Currently consulted. -GERD Continue Protonix -Hyperlipidemia Diet-controlled -Essential hypertension Continue with Norvasc -Primary osteoarthritis Pain medications when necessary -Thalassemia minor -Obesity BMI 32 Additionally: Care was discussed with the patient. Continue current medication. Otherwise patient doing well. Follow with cardiology. Thank Dr. Ramos
[2020-04-08] MEDS: HYDROmorphone 0.5 MG/0.5 ML SYRINGE IVP PRN (23:47)
[2020-04-09 07:24] LABS: Glucose,Whole Blood 163 mg/dL (75-99)
--- NOTE | 2020-04-09 07:33 | ECHOF ---
Referral Reason:re: Afib MEASUREMENTS -------- HEIGHT: 165.1 cm WEIGHT: 89.8 kg BP: RVIDd: 2.8 cm (< 3.3) IVSd: 1.2 cm (0.6 - 1.1) LVIDd: 3.7 cm (3.9 - 5.3) LVPWd: 1.0 cm (0.6 - 1.1) IVSs: 1.5 cm LVIDs: 2.5 cm LVPWs: 1.1 cm LAESV Index (A-L): 34.41 ml/m Ao Diam: 2.7 cm (2.0 - 3.7) AV Cusp: 1.6 cm (1.5 - 2.6) LA Diam: 4.8 cm (2.7 - 3.8) RAP: 5.00 mmHg RVSP: 15.10 mmHg FINDINGS -------- Atrial fibrillation. This was a technically adequate study. The left ventricular size is normal. There is mild concentric left ventricular hypertrophy. Overa ll left ventricular systolic function is low-normal with, an EF between 50 - 55 %. The right ventricle is normal in size. LA is moderately dilated 34-39 ml/m2 The right atrial size is normal. There is mild aortic valve sclerosis. There is no evidence of aortic regurgitation. Mild mitral regurgitation is present. Mild tricuspid regurgitation present. Right ventricular systolic pressure is normal at < 35 mmHg. There is no pulmonic regurgitation present. The aortic root size is normal. There is no pericardial effusion. CONCLUSIONS -------- 1. The left ventricular size is normal. 2. There is mild concentric left ventricular hypertrophy. 3. Overall left ventricular systolic function is low-normal with, an EF between 50 - 55 %. 4. The right ventricle is normal in size. 5. LA is moderately dilated 34-39 ml/m2 6. The right atrial size is normal. 7. There is mild aortic valve sclerosis. 8. Mild mitral regurgitation is present. 9. Mild tricuspid regurgitation present. 10. There is no pulmonic regurgitation present. 11. The aortic root size is normal. 12. There is no pericardial effusion. STEAM SETTER: Shandra Locke RDCS
[2020-04-09] MEDS: HYDROcodone/APAP 5-325MG 1 EACH TAB PO PRN ×3 (08:16→23:37)
[2020-04-09] MEDS: APIXABAN 5 MG TAB PO SCH ×2 (08:16→20:48)
[2020-04-09] MEDS: ASCORBIC ACID 500 MG TAB PO SCH (08:16)
[2020-04-09] MEDS: PANTOPRAZOLE 40 MG TABLET PO SCH (08:16)
[2020-04-09] MEDS: METOPROLOL TARTRATE 25 MG TAB PO SCH ×2 (08:17→20:50)
[2020-04-09] MEDS: CHOLECALCIFEROL 400 UNIT TAB PO SCH (08:18)
[2020-04-09] MEDS: LINAGLIPTIN 5 MG TABLET PO SCH (08:18)
[2020-04-09] MEDS: amLODIPine 10 MG TAB PO SCH (08:18)
[2020-04-09] MEDS: ZINC SULFATE 220 MG CAP PO SCH (08:18)
[2020-04-09] MEDS: metFORMIN 500 MG TAB PO SCH ×2 (09:00→18:19)
--- NOTE | 2020-04-09 11:45 | P.PN ---
Subjective Progress Note Date: 04/09/20 Principal diagnosis: Left Hip fracture Patient is seen at bedside this morning. She is postop day #5 from left gamma nail for left IT fracture. She has pain at the surgical site as expected but denies any new complaints. She has developed Afib and is being managed by cardiology and started eloquis. She denies numbness, tingling or calf pain. Review of systems is negative for fever, chills, chest pain, shortness of breath or other Objective - Vital Signs Vital signs: Vital Signs Temp 98.1 F 04/09/20 08:00 Pulse 81 04/09/20 08:00 Resp 16 04/09/20 08:00 BP 110/69 04/09/20 08:00 Pulse Ox 95 04/09/20 08:00 Intake & Output 04/08/20 04/09/20 04/09/20 18:59 06:59 18:59 Intake Total 296 Output Total 300 Balance -4 Weight 89.811 kg Intake: Oral 296 Output: Urine 300 Other: Voiding Method Bedside Commode Bedside Commode # Voids 2 1 1 # Bowel Movements 1 - Exam Inspection reveals a benign surgical wound. There is no active bleeding or drainage. Neurovascular status is intact throughout the lower extremity with motor and sensation fully intact. Calf is soft and nontender. 2+ dorsalis pedis pulse and less than 2 second cap refill is present. - Constitutional General appearance: Present: no acute distress - Labs CBC & Chem 7: 04/07/20 17:58 04/07/20 17:58 Labs: Abnormal Lab Results - Last 24 Hours (Table) 04/08/20 04/08/20 04/09/20 Range/Units 17:12 19:26 07:22 POC Glucose (mg/dL) 160 H 152 H 163 H (75-99) mg/dL Assessment and Plan (1) Hip fracture, left Narrative/Plan: She will continue with routine postop orthopedic protocol including pain management, wound care, PT, DVT prophylaxis and medical management. She states that she has support at home and doesn't desire to go to [facility]. Expect that she will transfer to home tomorrow, Sunday, if ok with cardiology and IM Current Visit: Yes Status: Acute Priority: Medium Code(s): S72.002A - FRACTURE OF UNSP PART OF NECK OF LEFT FEMUR, INIT SNOMED Code(s): 557774399 Time with Patient: Less than 30
[2020-04-09 12:20] LABS: Glucose,Whole Blood 188 mg/dL (75-99)
[2020-04-09 13:02] LABS: Basophils % (A) 1 %; Eosinophils # (A) 0.1 k/uL (0-0.7); Eosinophils % (A) 2 %; HGB 8.5 gm/dL (11.4-16.0); Hypochromasia Slight; Lymphocytes # (A) 0.9 k/uL (1.0-4.8); Lymphocytes % (A) 15 %; MCH 19.4 pg (25.0-35.0); MCHC 31.6 g/dL (31.0-37.0); MCV 61.5 fL (80.0-100.0); Mean Platelet Volume 7.7; Microcytosis Marked; Monocytes # (A) 0.3 k/uL (0-1.0); Monocytes % (A) 5 %; Neutrophils # (A) 4.5 k/uL (1.3-7.7); Neutrophils % (A) 76 %; Platelet Count 250 k/uL (150-450); RBC 4.38 m/uL (3.80-5.40); WBC 5.9 k/uL (3.8-10.6)
[2020-04-09 13:16] LABS: Partial Thromboplastin Time 24.8 sec (22.0-30.0)
[2020-04-09 13:23] LABS: ALT 12 U/L (4-34); AST 29 U/L (14-36); African American GFR (CKD) 84 (>60 ml/min/1.73 sqM); Albumin 3.3 g/dL (3.5-5.0); Albumin/Globulin Ratio 1.2; Alkaline Phosphatase 84 U/L (38-126); Anion Gap 8 mmol/L; Blood Urea Nitrogen 19 mg/dL (7-17); Calcium 8.9 mg/dL (8.4-10.2); Carbon Dioxide 22 mmol/L (22-30); Chloride 101 mmol/L (98-107); Globulin 2.7 g/dL; Glucose 163 mg/dL (74-99); Non-African American GFR(CKD) 73 (>60 ml/min/1.73 sqM); Potassium 4.8 mmol/L (3.5-5.1); Sodium 131 mmol/L (137-145); Total Bilirubin 0.5 mg/dL (0.2-1.3)
[2020-04-09 17:51] LABS: Glucose,Whole Blood 169 mg/dL (75-99)
[2020-04-09] MEDS: SENNOSIDES-DOCUSATE SODIUM 1 EACH TAB PO SCH (20:50)
[2020-04-09] MEDS: MAGNESIUM OXIDE 400 MG TAB PO SCH (20:50)
[2020-04-09 20:55] LABS: Glucose,Whole Blood 188 mg/dL (75-99)
--- NOTE | 2020-04-09 23:18 | P.PN ---
Progress Note - Text Progress Note Date: 04/09/20 - Chief Complaint Left hip pain Consultation: This is a very pleasant 79-year-old patient of Dr. Whalen. Chronic stable medical conditions include diabetes, GERD, hyperlipidemia hypertension, osteoarthritis, thalassemia minor. Patient tripped mechanically taking off fall on the the left hip. Having significant pain. Did confirm to have a left femur neck fracture. Has no prior cardiac history and rather active. On September the day. The patient to go to surgery. Does not normally have any chest pain or shortness breath. Has a fair exercise tolerance. Patient was seen following surgery. Patient has a new onset of atrial fibrillation. Started on beta maximilian. Today-remains in A. fib. Controlled. Feels a bit tired. Has been up to the bathroom. Oral intake fair. Review of systems: Was done for constitutional, cardiovascular, GI, pulmonary. relevant finding as above Active Medications Hydrocodone Bitart/Acetaminophen (Hydrocodone/Apap 5-325mg 1 Each Tab) 1 each PO Q6HR PRN PRN Reason: Pain Scale 1 to 5 Last Admin: 04/08/20 10:06 Dose: 1 each Documented by: Hydrocodone Bitart/Acetaminophen (Hydrocodone/Apap 5-325mg 1 Each Tab) 2 each PO Q6HR PRN PRN Reason: Pain Scale 6 to 10 Last Admin: 04/09/20 13:26 Dose: 2 each Documented by: Amlodipine Besylate (Amlodipine 10 Mg Tab) 10 mg PO DAILY [facility] Last Admin: 04/09/20 08:18 Dose: 10 mg Documented by: Apixaban (Apixaban 5 Mg Tab) 5 mg PO BID [facility] Last Admin: 04/09/20 20:48 Dose: 5 mg Documented by: Ascorbic Acid (Ascorbic Acid 500 Mg Tab) 500 mg PO DAILY [facility] Last Admin: 04/09/20 08:16 Dose: 500 mg Documented by: Cholecalciferol (Cholecalciferol 400 Unit Tab) 400 unit PO DAILY [facility] Last Admin: 04/09/20 08:18 Dose: 400 unit Documented by: Hydromorphone HCl (Hydromorphone 0.5 Mg/0.5 Ml Syringe) 0.5 mg IVP Q3HR PRN PRN Reason: Moderate Pain Last Admin: 04/08/20 23:47 Dose: 0.5 mg Documented by: Linagliptin (Linagliptin 5 Mg Tablet) 5 mg PO DAILY [facility] Last Admin: 04/09/20 08:18 Dose: 5 mg Documented by: Magnesium Oxide (Magnesium Oxide 400 Mg Tab) 400 mg PO HS [facility] Last Admin: 04/09/20 20:50 Dose: 400 mg Documented by: Metformin HCl (Metformin 500 Mg Tab) 1,000 mg PO BID-W/MEALS [facility] Last Admin: 04/09/20 18:19 Dose: 1,000 mg Documented by: Metoprolol Tartrate (Metoprolol Tartrate 25 Mg Tab) 25 mg PO BID [facility] Last Admin: 04/09/20 20:50 Dose: 25 mg Documented by: Morphine Sulfate (Morphine Sulfate 4 Mg/Ml Syringe) 4 mg IV Q4HR PRN PRN Reason: Severe Pain Last Admin: 04/06/20 05:25 Dose: 4 mg Documented by: Naloxone HCl (Naloxone 0.4 Mg/Ml 1 Ml Vial) 0.2 mg IV Q2M PRN PRN Reason: Opioid Reversal Ondansetron HCl (Ondansetron 4 Mg/2 Ml Vial) 4 mg IVP Q8HR PRN PRN Reason: Nausea And Vomiting Last Admin: 04/05/20 16:48 Dose: 4 mg Documented by: Ondansetron HCl (Ondansetron 4 Mg/2 Ml Vial) 4 mg IVP Q24HR PRN PRN Reason: Nausea And Vomiting Pantoprazole Sodium (Pantoprazole 40 Mg Tablet) 40 mg PO DAILY [facility] Last Admin: 04/09/20 08:16 Dose: 40 mg Documented by: Senna/Docusate Sodium (Sennosides-Docusate Sodium 1 Each Tab) 2 each PO [facility] Last Admin: 04/09/20 20:50 Dose: 2 each Documented by: Zinc Sulfate (Zinc Sulfate 220 Mg Cap) 220 mg PO DAILY [facility] Last Admin: 04/09/20 08:18 Dose: 220 mg Documented by: Physical examination: VITAL SIGNS: 97.8, 100, 16, 119/80, 96% room air GENERAL: Sliding in bed, comfortable EYES: Pupils equal. Conjunctiva normal. NECK: JVD not raised; masses not palpable. HEART: Heart sounds irregular; no edema. LUNGS: Respiratory rate normal; clear to auscultation. ABDOMEN: Soft, nontender, liver spleen not palpable, no masses palpable. PSYCH: Alert and oriented x3; mood and affect normal. MUSCULAR skeletal: Dressing over the left hip. Evidence of OA in the hands. INVESTIGATIONS, reviewed in the clinical context: April 09: White count 5.9 hemoglobin 8.5 potassium 4.8 creatinine 0.77 sodium 131 April 07: Hemoglobin 8.6 sodium 129 potassium 4.4 creatinine 0.73 EKG tracing-atrial fibrillation rate uncontrolled April 06: White count 7.6 hemoglobin 9 platelets 161 White count 10.4 hemoglobin 10.5 platelets 276 potassium 4.5 creatinine 0.86 UA negative [id number], 115 EKG tracing personally reviewed by me-normal sinus rhythm Chest x-ray film personally reviewed by me-no obvious abnormality Assessment and plan -Left femur neck fracture secondary to fall. Status post repair with iron hip screw. Received IV Ancef for infection prophylaxis -Diabetes mellitus type 2 Continue oxygen to, metformin follow Accu-Cheks -New onset atrial fibrillation Started on beta maximilian. Currently consulted. -GERD Continue Protonix -Hyperlipidemia Diet-controlled -Essential hypertension Continue with Norvasc -Primary osteoarthritis Pain medications when necessary -Thalassemia minor -Obesity BMI 32 -Hyponatremia from excessive water intake Patient told to cut back on oral fluid intake Additionally: Stable. Continue current medications. Patient told to cut back on fluid inta ke. Thank Dr. Ramos
[2020-04-10] MEDS: HYDROmorphone 0.5 MG/0.5 ML SYRINGE IVP PRN (01:13)
[2020-04-10 08:04] LABS: Glucose,Whole Blood 158 mg/dL (75-99)
[2020-04-10] MEDS: PANTOPRAZOLE 40 MG TABLET PO SCH (08:43)
[2020-04-10] MEDS: HYDROcodone/APAP 5-325MG 1 EACH TAB PO PRN ×2 (08:43→15:44)
[2020-04-10] MEDS: METOPROLOL TARTRATE 25 MG TAB PO SCH (08:43)
[2020-04-10] MEDS: ZINC SULFATE 220 MG CAP PO SCH (08:43)
[2020-04-10] MEDS: metFORMIN 500 MG TAB PO SCH (08:45)
[2020-04-10] MEDS: APIXABAN 5 MG TAB PO SCH (08:45)
[2020-04-10] MEDS: amLODIPine 10 MG TAB PO SCH (08:45)
[2020-04-10] MEDS: CHOLECALCIFEROL 400 UNIT TAB PO SCH (08:45)
[2020-04-10] MEDS: LINAGLIPTIN 5 MG TABLET PO SCH (08:45)
[2020-04-10] MEDS: ASCORBIC ACID 500 MG TAB PO SCH (08:45)
[2020-04-10 11:31] LABS: Glucose,Whole Blood 163 mg/dL (75-99)
--- NOTE | 2020-04-10 12:41 | P.DS ---
Providers Date of admission: 04/03/20 20:10 Expected date of discharge: 04/10/20 Attending physician: Evelio Ramos Consults: 04/03/20 20:18 Consult Physician Stat Consulting Provider: Hunter Harkins Consult Reason/Comments: Preop clearance, L hip fx Do you want consulting provider notified?: Yes Primary care physician: Johnson Whalen - Discharge Diagnosis(es) (1) Closed trochanteric fracture of hip Current Visit: Yes Status: Acute (2) Left hip pain Current Visit: Yes Status: Acute (3) New onset atrial fibrillation Current Visit: Yes Status: Acute (4) Blood disorder Current Visit: Yes Status: Acute (5) Diabetes Current Visit: Yes Status: Acute (6) Hypertension Current Visit: Yes Status: Acute (7) Hyperlipidemia Current Visit: Yes Status: Acute (8) Status post fall Current Visit: Yes Status: Acute (9) Obesity (BMI 30.0-34.9) Current Visit: Yes Status: Acute Hospital Course: This is a pleasant 79-year-old female who presented with left intertrochanteric hip fracture status post fall. She is admitted for further treatment and evaluation. She underwent a left hip intramedullary nail fixation for intertrochanteric hip fracture performed by Dr. Ramos on 04/04/2020. She has continued to improve postoperatively. She states her left hip pain has been adequately controlled. She's been using a walker to aid in ambulation. She is toe-touch weightbearing on the left lower extremity. She also has a walker to aid in ambulation at home. She has multiple family members to help her with her mobility. She is ready for discharge home today pending clearance by medicine. Patient was diagnosed with new onset atrial fibrillation during her admission. She's been seen by cardiology and cleared for discharge. Patient is currently on Eliquis. Patient has been given Eliquis at discharge. Condition on day of discharge stable. Patient will be discharged home. Patient was cleared preoperatively for surgery by . Patient currently denies any nausea, vomiting, fever, or chills. Patient is eating and voiding freely without difficulty. Eliceo remain intact over the surgical sites with no active drainage. Patient may shower without a dressing intact at this time. Patient should continue with strict toe-touch weightbearing on the left lower extremity. MAPS has been reviewed and a "Opiod Start Talking" Form has been signed and placed in the patient's chart. A prescription has been written for Empire 5 mg/325 mg 1 tab every 4 hours as needed for pain, dispense #42. She may resume other previously prescribed home medications. Patient should take Eliquis as prescribed. Patient is also given a prescription for Colace 100 mg by mouth twice a day as needed for constipation. Patient's other medical diagnoses include new onset atrial fibrillation currently on anticoagulation, diabetes mellitus, hyperlipidemia, hypertension, obesity and blood disorder. Patient is set up with home health care. Troy may be removed in 10 days by home health care. Physical Exam Intramedullary Rodding for Intertrochanteric Fracture: Status post surgical day number 6 Patient is examined lying in bed Patient is awake and alert, and oriented 3 Vital signs stable Good chest excursion with deep inspiration and expiration; patient currently on O2 nasal cannula No signs or symptoms of DVT; no calf pain Lower extremity cuffs in place bilaterally Dressing of the left hip is clean, dry, and intact; no erythema, purulence, or signs of infection Dressing is removing physical examination No active drainage from his surgical sites Troy remain intact at the surgical sites No pain with palpation over the surgical sites Full range of motion of ankles bilaterally Dorsiflexion, plantarflexion, and extensor hallucis longus positive sustained bilaterally Neurovascularly intact bilateral lower extremities Capillary refill less than 2 seconds bilateral lower extremities Procedures: Left intramedullary nail fixation for left intertrochanteric hip fracture Patient Condition at Discharge: Stable Plan - Discharge Summary Discharge Rx Participant: No New Discharge Prescriptions: New Apixaban [Eliquis] 5 mg PO BID #60 tab Docusate [Colace] 100 mg PO BID #60 capsule HYDROcodone/APAP 5-325MG [Empire 5-325] 1 tab PO Q4HR PRN #42 tab PRN Reason: Pain Continue metFORMIN HCL [Glucophage] 1,000 mg PO BID sitaGLIPtin PHOSPHATE [Januvia] 100 mg PO DAILY [place]-3 Fatty Acids/Fish Oil [Fish Oil 1,000 mg Softgel] 1 cap PO HS Co Q-10 1 tab PO DAILY Vitamin D3(Unknown) 1 tab PO DAILY Magnesium(Unknown) 1 tab PO HS Zinc 50 mg PO DAILY Vitamin C(Unknown) 1 tab PO DAILY Changed amLODIPine [Norvasc] 5 mg PO DAILY #0 No Action Turmeric Root Extract [Turmeric] 500 mg PO HS Cinnamon Bark [Cinnamon] 500 mg PO DAILY Red Yeast Rice 600 mg PO DAILY Discharge Medication List metFORMIN HCL [Glucophage] 1,000 mg PO BID 03/27/16 [History] sitaGLIPtin PHOSPHATE [Januvia] 100 mg PO DAILY 03/27/16 [History] Co Q-10 1 tab PO DAILY 05/12/16 [History] [place]-3 Fatty Acids/Fish Oil [Fish Oil 1,000 mg Softgel] 1 cap PO HS 05/12/16 [ History] Cinnamon Bark [Cinnamon] 500 mg PO DAILY 07/16/18 [History] Magnesium(Unknown) 1 tab PO HS 07/16/18 [History] Turmeric Root Extract [Turmeric] 500 mg PO HS 07/16/18 [History] Vitamin D3(Unknown) 1 tab PO DAILY 07/16/18 [History] Red Yeast Rice 600 mg PO DAILY 04/03/20 [History] Vitamin C(Unknown) 1 tab PO DAILY 04/03/20 [History] Zinc 50 mg PO DAILY 04/03/20 [History] Apixaban [Eliquis] 5 mg PO BID #60 tab 04/08/20 [Rx] amLODIPine [Norvasc] 5 mg PO DAILY #0 04/08/20 [Rx] Docusate [Colace] 100 mg PO BID #60 capsule 04/09/20 [Rx] HYDROcodone/APAP 5-325MG [Empire 5-325] 1 tab PO Q4HR PRN #42 tab 04/09/20 [Rx] Follow up Appointment(s)/Referral(s): [facility], [NON-STAFF] - 1-2 Days Johnson Whalen DO [Primary Care Provider] - 1-2 days Nithin Thomas DO [STAFF PHYSICIAN] - 2 Weeks Evelio Ramos MD [STAFF PHYSICIAN] - 1 Week Patient Instructions/Handouts: A-fib (Atrial Fibrillation) (ED), Staple Care (DC) Activity/Diet/Wound Care/Special Instructions: New Atrial Fibrillation (AFIB) New-Eliquis(medication) left hip surgery 04/04/2020 left hip incision-eliceo ECHO completed 04/09/2020 1. Touchdown weight bearing with walker 2. take meds as directed 3. F/U with Dr. Ramos in office 4. Keep wound clean and dry 5. Patient may shower without dressing intact over the surgical sites 6. Keep eliceo intact; Troy may be removed in 10 days by home care Discharge Disposition: HOME WITH HOME HEALTH SERVICES
[2020-04-10 14:14] VITALS: BP 105/56; PULSE 71; RESP 17; TEMP 98.1
== END 2020-04-10 16:10 | disposition home health service (06) | DRG 481 ==
LOC: EC 18:28 → 5NMEDONC 20:10
PROVIDERS: ADMIT Orthopaedic Surgery Sports Medicine; ATTEND Orthopaedic Surgery Sports Medicine
PROC: 0QS706Z Reposition Left Upper Femur with Intramedullary Internal Fixation Device, Open Approach (ICD-10-PCS; principal; 2020-04-04 14:00)
DX: S72.142A Displaced intertrochanteric fracture of left femur, initial encounter for closed fracture (principal); E87.1 Hypo-osmolality and hyponatremia; E78.5 Hyperlipidemia, unspecified; E66.9 Obesity, unspecified; E11.9 Type 2 diabetes mellitus without complications; K21.9 Gastro-esophageal reflux disease without esophagitis; I10 Essential (primary) hypertension; I48.0 Paroxysmal atrial fibrillation; H91.90 Unspecified hearing loss, unspecified ear; M19.91 Primary osteoarthritis, unspecified site; W01.0XXA Fall on same level from slipping, tripping and stumbling without subsequent striking against object, initial encounter; D56.3 Thalassemia minor; Z79.01 Long term (current) use of anticoagulants; Z79.82 Long term (current) use of aspirin; Z79.84 Long term (current) use of oral hypoglycemic drugs; Z79.899 Other long term (current) drug therapy; Z90.710 Acquired absence of both cervix and uterus; Z68.32 Body mass index [BMI] 32.0-32.9, adult; Y92.009 Unspecified place in unspecified non-institutional (private) residence as the place of occurrence of the external cause; Z88.0 Allergy status to penicillin; Z88.2 Allergy status to sulfonamides; Z88.8 Allergy status to other drugs, medicaments and biological substances; Z90.89 Acquired absence of other organs; Z98.42 Cataract extraction status, left eye; Z83.2 Family history of diseases of the blood and blood-forming organs and certain disorders involving the immune mechanism
CPT/HCPCS: 36415; 71045; 73502; 80053; 81003; 85025; 85610; 85730; 86850; 86900; 86901; 93005; 93306; 94760; 96374; 96375; 99285

== ENCOUNTER → 2021-09-22 | Outpatient (CLI) | payer MEDICARE, BC ==
--- NOTE | 2021-09-23 08:32 | CT ---
EXAMINATION TYPE: CT brain wo con DATE OF EXAM: 09/23/2021 HISTORY: Headache after recent fall injury CT DLP: 1072 mGycm. Automated Exposure Control for Dose Reduction was Utilized. TECHNIQUE: CT scan of the head is performed without contrast. COMPARISON: None. FINDINGS: There is no acute intracranial hemorrhage or midline shift identified. There is moderate diffuse ventricular and sulcal prominence consistent with diffuse age-related cerebral atrophy. Ther e is moderate low-attenuation in the periventricular white matter consistent with chronic small vesse l ischemic change. There are mucous retention cysts and/or polyps in the inferior bilateral maxillary sinuses with mild left-sided mucosal thickening inferiorly. Persistent anterior metopic suture. Glob es are intact bilaterally. IMPRESSION: No acute intracranial hemorrhage or midline shift. There is moderate diffuse cerebral a trophy and chronic small vessel ischemic change noted.
== END | disposition home or self-care (01) ==
LOC: RADCTMAIN 19:00
PROVIDERS: ATTEND Family Medicine
DX: I67.82 Cerebral ischemia (principal)
CPT/HCPCS: 70450

== ENCOUNTER 2022-03-03 05:57 | Day surgery (SDC) | payer MEDICARE, BC ==
[2022-03-03] MEDS ORDERED: SODIUM CHLORIDE 0.9% 1,000 ML IV SCH (05:58)
[2022-03-03] MEDS ORDERED: SODIUM CHLORIDE 0.9% 500 ML 500 ML IV ONE (06:12)
[2022-03-03 06:23] VITALS: TEMP 97.1
[2022-03-03 06:27] LABS: Glucose,Whole Blood 174 mg/dL (70-110)
[2022-03-03 06:46] LABS: Calcium 9.3 mg/dL (8.4-10.2); Potassium 4.5 mmol/L (3.5-5.1)
[2022-03-03] MEDS ORDERED: LIDOCAINE 2% INJ 20 MG/ML (2 ML VIAL) ONE (07:25)
[2022-03-03] MEDS ORDERED: PROPOFOL 10 MG/ML 20 ML VIAL IV ONE (07:25)
[2022-03-03] MEDS: BENZOCAINE SPRAY 1 CAN TOPICAL ONE ×2 (07:39→07:42)
--- NOTE | 2022-03-03 07:56 | P.PCN ---
Date of Procedure: 03/03/22 Operative Findings: TRANSESOPHAGEAL ECHOCARDIOGRAM WREATH MAKER: GRACIELA JACKMAN MD, RPVI INDICATION: Rule out intracardiac thrombus before cardioversion SEDATION: Conscious sedation COMPLICATION: None LEVEL OF SEDATION The procedure was performed using propofol with GRINDING MILL OPERATOR in the room PROCEDURE DESCRIPTION: After obtaining an informed consent, the patient was brought to recovery room. Pulse oximetry and heart monitors were attached to the patient. The patient throat was sprayed using lidocaine. The patient was turned into left lateral position. After that a bite guard was placed. After an appropriate sedation was initiated, the transesophageal echocardiogram was advanced through a bite guard into the mid esophagus. A 2-D echocardiogram images, color Doppler images, continuous wave images, pulse-wave images, of various cardiac structure were performed. After that the transesophageal echocardiogram probe was advanced into the stomach and fixed to obtain transgastric view was. The probe was brought into the mid esophagus. Inter-atrial septum was interrogated using 2D images, color Doppler images, and then contrast study. After that transesophageal echocardiogram was withdrawn out and upon withdrawing the descending thoracic aorta all the way up to the arch was evaluated. FINDING: The left ventricular dimension and systolic function appeared to be within normal limits. The right ventricle appears to be dilated with normal function. The left atrium and right atrium are severely dilated. The left atrial appendage appeared to be free from any thrombus. The interatrial septum appeared to be intact. The aortic valve appears to be trileaflet valve without stenosis with mild insufficiency. The mitral valve appeared to be mildly thickened with moderate MR. There is moderate tricuspid regurgitation seen. No evidence of pericardial effusion identified CONCLUSION: 1. Intact left atrial appendage. Intact interatrial septum 2. Normal biventricular systolic function 3. Thickened anterior and posterior mitral leaflet was moderate mitral regurgitation 4. Aortic sclerosis without stenosis with mild insufficiency 5. Moderate mitral regurgitation 6. No evidence of pericardial effusion
--- NOTE | 2022-03-03 07:56 | P.PCN ---
Date of Procedure: 03/03/22 Operative Findings: Cardioversion Report Performing physician Isiah Smiley M.D. Procedure performed Successful cardioversion of atrial fibrillation to normal sinus mechanism using 200 J at first attempt Indication Symptomatic atrial fibrillation Complication None Level of sedation The procedure was performed under deep sedation using propofol with PROPERTY UTILIZATION OFFICER in the room Procedure description After obtaining an informed consent the patient was brought to the recovery room. Sedation was introduced using propofol with PROPERTY UTILIZATION OFFICER in the room. Subsequently the patient cardioverted from atrial fibrillation to normal sinus mechanism using 200 J and first attempt Conclusion Successful cardioversion of atrial fibrillation to normal sinus mechanism using 200 J Postprocedure management Continue the current medical regimen Continue oral anticoagulation Follow-up with the patient
[2022-03-03 08:11] VITALS: RESP 16
[2022-03-03 09:21] VITALS: BP 136/62; PULSE 84
== END 2022-03-03 09:25 | disposition home or self-care (01) ==
LOC: CATHCVL 05:57
PROVIDERS: ATTEND Internal Medicine Interventional Cardiology
DX: I48.0 Paroxysmal atrial fibrillation (principal); I34.0 Nonrheumatic mitral (valve) insufficiency; I48.91 Unspecified atrial fibrillation; E11.9 Type 2 diabetes mellitus without complications; I10 Essential (primary) hypertension; E78.5 Hyperlipidemia, unspecified
CPT/HCPCS: 93312; 93320; 93325; 92960; 80048; J2704; J2001

== ENCOUNTER → 2022-04-10 | Day surgery (SDC) | payer MEDICARE, BC ==
[~2022-04-10] MED LIST changes: -DEXAMETHASONE SOD PHOSPHATE 10 MG/ML 1 ML VIAL IV ONE; +LACTATED RINGERS 1,000 ML IV ONE; -LIDOCAINE 1% 20 ML VIAL (10MG/ML) FOR IV START INTRADERMA PRN; -MIDAZOLAM 2 MG/2 ML VIAL IV PRN; -ONDANSETRON 4 MG/2 ML VIAL IVP ONE; +PROPOFOL 10 MG/ML 20 ML VIAL IV ONE; -SCOPOLAMINE 1.5MG/72HR PATCH TRANSDERM ONE; +SODIUM CHLORIDE 0.9% 1,000 ML IV SCH
[2022-04-10 06:38] LABS: Glucose,Whole Blood 147 mg/dL (70-110)
[2022-04-10 07:24] LABS: Potassium 4.3 mmol/L (3.5-5.1)
[2022-04-10 07:25] VITALS: TEMP 97.5
--- NOTE | 2022-04-10 07:43 | P.PCN ---
Date of Procedure: 04/10/22 Operative Findings: Cardioversion Report Performing physician Isiah Smiley M.D. Procedure performed Successful cardioversion of atrial fibrillation to normal sinus mechanism using 200 J at first attempt Indication Symptomatic atrial fibrillation Complication None Level of sedation The procedure was performed under deep sedation using propofol with STONE CARRIAGE OPERATOR in the room Procedure description After obtaining an informed consent the patient was brought to the recovery room. Sedation was introduced using propofol with STONE CARRIAGE OPERATOR in the room. Subsequently the patient cardioverted from atrial fibrillation to normal sinus mechanism using 200 J and first attempt Conclusion Successful cardioversion of atrial fibrillation to normal sinus mechanism using 200 J Postprocedure management Continue the current medical regimen Continue oral anticoagulation Follow-up with the patient
[2022-04-10 08:15] VITALS: RESP 16
[2022-04-11 13:57] VITALS: BP 156/82; PULSE 80
== END ==
LOC: CATHCVL 05:53
PROVIDERS: ATTEND Internal Medicine Interventional Cardiology
DX: I48.91 Unspecified atrial fibrillation (principal); E11.9 Type 2 diabetes mellitus without complications; I10 Essential (primary) hypertension; Z79.84 Long term (current) use of oral hypoglycemic drugs; Z88.0 Allergy status to penicillin; Z79.899 Other long term (current) drug therapy; Z79.02 Long term (current) use of antithrombotics/antiplatelets
CPT/HCPCS: 92960; 80048; J2704

== ENCOUNTER 2022-05-04 15:37 | Emergency (ER) | payer MEDICARE, BC ==
--- NOTE | 2022-05-04 17:02 | XR ---
EXAMINATION TYPE: XR chest 2V DATE OF EXAM: 05/04/2022 COMPARISON: Chest x-ray April 03, 2020 HISTORY: Difficulty in breathing. TECHNIQUE: Frontal and lateral views of the chest are obtained. FINDINGS: There is chronic parenchymal change without suspicious focal air space opacity, pleural ef fusion, or pneumothorax seen. The cardiac silhouette size is stable and enlarged with atheroscleroti c change aortic knob. The osseous structures are demineralized. IMPRESSION: Chronic changes and cardiomegaly without acute pulmonary process.
[2022-05-04 18:45] LABS: Anisocytosis Slight; Basophils % (A) 0 %; Eosinophils # (A) 0.1 k/uL (0-0.7); Eosinophils % (A) 1 %; HCT 40.3 % (34.0-46.0); HGB 12.6 gm/dL (11.4-16.0); Hypochromasia Marked; Lymphocytes # (A) 2.5 k/uL (1.0-4.8); Lymphocytes % (A) 30 %; MCH 19.5 pg (25.0-35.0); MCHC 31.4 g/dL (31.0-37.0); Mean Platelet Volume 7.5; Microcytosis Marked; Monocytes # (A) 0.4 k/uL (0-1.0); Monocytes % (A) 4 %; Neutrophils # (A) 5.1 k/uL (1.3-7.7); Neutrophils % (A) 62 %; Platelet Count 253 k/uL (150-450); RBC 6.49 m/uL (3.80-5.40); WBC 8.3 k/uL (3.8-10.6)
[2022-05-04 18:54] LABS: Appearance,Urine Cloudy (Clear); Bacteria,Urine Many /hpf; Bilirubin,Urine Negative (Negative); Blood,Urine Negative (Negative); Color,Urine Yellow; Glucose,Urine (UA) Negative (Negative); Hyaline Casts,Urine 12 /lpf (0-2); Ketones,Urine Negative (Negative); Leukocyte Esterase,Urine Large (Negative); Mucus,Urine Moderate /hpf; Nitrite,Urine Negative (Negative); PH, Urine 5.5 (5.0-8.0); Protein,Urine Trace (Negative); RBC,Urine 3 /hpf (0-5); Specific Gravity,Urine 1.016 (1.001-1.035); Squamous Epithelial Cell,Urine 2 /hpf (0-4); Urobilinogen,Urine <2.0 mg/dL (<2.0); WBC,Urine >182 /hpf (0-5)
[2022-05-04 18:59] LABS: Albumin 4.5 g/dL (3.5-5.0); Calcium 9.3 mg/dL (8.4-10.2); Potassium 4.2 mmol/L (3.5-5.1); Total Bilirubin 0.6 mg/dL (0.2-1.3); Total Protein 7.4 g/dL (6.3-8.2)
[2022-05-04 19:05] LABS: Partial Thromboplastin Time 26.7 sec (22.0-30.0); Prothrombin Time 10.6 sec (9.0-12.0)
[2022-05-04 20:52] VITALS: RESP 18
--- NOTE | 2022-05-04 20:57 | ED ---
SOB HPI - General Chief Complaint: Shortness of Breath Stated Complaint: Hypertension Time Seen by Provider: 05/04/22 21:30 Source: patient Mode of arrival: wheelchair Limitations: no limitations - History of Present Illness Initial Comments: 81-year-old female with past medical history of A. fib, thalassemia minor, hypertension who presents to the emergency department with generalized weakness. States that she has had weakness and exertional dyspnea for the past several months. She was working with Dr. Smiley as they are convinced that it is related to her A. fib. She has been cardioverted twice before. She has also had a FRIDA. Dr. Smiley recently made some medication changes that the patient feels that she is not tolerating well as she cannot walk across a room without becoming short of breath. She denies history of congestive heart failure. No leg swelling. Denies fevers. No headache or visual changes. Denies cough. No changes in her bowel or bladder habits. States her legs have been weak and giving out on her. Denies falls with head injury. She is also complaining of high blood pressure. States that since her medications were changed .they no longer keep her blood pressure under control. No alleviating, precipitating or modifying factors - Related Data Home Medications Medication Instructions Recorded Confirmed metFORMIN HCL [Glucophage] 1,000 mg PO BID 03/27/16 05/04/22 Cinnamon Bark [Cinnamon] 500 mg PO HS 07/16/18 05/04/22 Turmeric Root Extract [Turmeric] 1,000 mg PO HS 07/16/18 05/04/22 Red Yeast Rice 600 mg PO BID 04/03/20 05/04/22 Zinc 50 mg PO DAILY 04/03/20 05/04/22 Amiodarone [Cordarone] 200 mg PO DAILY 04/10/22 05/04/22 Apixaban [Eliquis] 2.5 mg PO BID 05/04/22 05/04/22 Ascorbic Acid [Vitamin C] 250 mg PO DAILY 05/04/22 05/04/22 Cholecalciferol [Vitamin D3 (125 125 mcg PO DAILY 05/04/22 05/04/22 Mcg = 5000 Iu)] Fish Oil/Dha/Epa [Fish Oil 1,200 2 cap PO HS 05/04/22 05/04/22 mg Fish Oil] Magnesium Oxide 400 mg PO BID 05/04/22 05/04/22 Ubidecarenone [Coenzyme Q10] 200 mg PO DAILY 05/04/22 05/04/22 amLODIPine [Norvasc] 5 mg PO DAILY 05/04/22 05/04/22 Previous Rx's Medication Instructions Recorded Cephalexin [Keflex] 500 mg PO BID #14 cap 05/04/22 Allergies Allergy/AdvReac Type Severity Reaction Status Date / Time Penicillins Allergy Rash/Hives Verified 05/04/22 21:55 sulfamethoxazole Allergy Rash/Hives Verified 05/04/22 21:55 [From Bactrim] trimethoprim [From Bactrim] Allergy Rash/Hives Verified 05/04/22 21:55 Review of Systems ROS Statement: Those systems with pertinent positive or pertinent negative responses have been documented in the HPI. ROS Other: All systems not noted in ROS Statement are negative. Past Medical History Past Medical History: Atrial Fibrillation, Blood Disorder, Diabetes Mellitus, GERD/Reflux, Hearing Disorder / Deafness, Hyperlipidemia, Hypertension, Osteoarthritis (OA), Renal Disease Additional Past Medical History / Comment(s): BACK PAIN, THALASSEMIA MINOR, sees kidney dr regularly, torn rotator cuff right shoulder-no surgery, SOB w/exertion recently History of Any Multi-Drug Resistant Organisms: None Reported Past Surgical History: Hysterectomy, Orthopedic Surgery, Tonsillectomy Additional Past Surgical History / Comment(s): right elbow surgery, kamala. cataracts removed, ORIF left hip, recent cardioversion Past Anesthesia/Blood Transfusion Reactions: No Reported Reaction Past Psychological History: No Psychological Hx Reported Smoking Status: Never smoker - Past Family History Mother Family Medical History: No Reported History Additional Family Medical History / Comment(s): THALLISEMIA AND SIBLINGS ALSO. General Exam Limitations: no limitations General appearance: alert, in no apparent distress Head exam: Present: atraumatic, normocephalic, normal inspection Eye exam: Present: normal appearance, PERRL, EOMI. Absent: scleral icterus, conjunctival injection, periorbital swelling ENT exam: Present: normal exam, mucous membranes moist Neck exam: Present: normal inspection. Absent: tenderness, meningismus, lymphadenopathy Respiratory exam: Present: normal lung sounds bilaterally. Absent: respiratory distress, wheezes, rales, rhonchi, stridor Cardiovascular Exam: Present: regular rate, irregular rhythm, normal heart sounds. Absent: systolic murmur, diastolic murmur, rubs, gallop, clicks GI/Abdominal exam: Present: soft, normal bowel sounds. Absent: distended, tenderness, guarding, rebound, rigid Extremities exam: Present: normal inspection, full ROM, normal capillary refill. Absent: tenderness, pedal edema, joint swelling, calf tenderness Back exam: Present: normal inspection Neurological exam: Present: alert, oriented X3, CN II-XII intact Psychiatric exam: Present: normal affect, normal mood Skin exam: Present: warm, dry, intact, normal color. Absent: rash Course Vital Signs 05/04/22 05/04/22 05/04/22 16:12 20:52 22:36 Temperature 97.7 F Pulse Rate 106 H 77 73 Respiratory 16 18 18 Rate Blood Pressure 126/77 127/79 135/100 O2 Sat by Pulse 96 97 96 Oximetry 05/04/22 23:38 Temperature 97.4 F L Pulse Rate 70 Respiratory 18 Rate Blood Pressure 151/74 O2 Sat by Pulse 98 Oximetry Medical Decision Making - Medical Decision Making Was pt. sent in by a medical professional or institution? no Did you speak to anyone other than the patient for history? daughter Did you review nursing and triage notes? yes and I agree Were old charts reviewed? old admissions, echo, ekg reviewed Differential Diagnosis? MDM Differential Dyspnea: Coronary syndrome, arrhythmia, tamponade, asthma, COPD, pulmonary embolism, pneumonia, pneumothorax, pulmonary effusion, anaphylaxis, diabetic ketoacidosis, flailed chest, pulmonary contusion, diaphragmatic rupture, anemia, neuromuscular this is not meant to be an all-inclusive list. EKG interpreted by me (3pts min.)? yes X-rays interpreted by me (1pt min.)? yes CT interpreted by me (1pt min.)? no U/S interpreted by me (1pt. min.)? no What testing was considered but not performed? (CT, X-rays, U/S, labs)? Why? none What meds were considered but not given? Why? none Did you discuss the management of the patient with other professionals? none Did you reconcile home meds? no Was smoking cessation discussed for >3mins.? no Was critical care preformed (if so, how long)? no Were there social determinants of health that impacted care today? How? (Homelessness, low income, unemployed, alcoholism, drug addiction, transportation, low edu. Level, literacy, decrease access to med. care, usp, rehab)? none Was there de-escalation of care discussed even if they declined? (Discuss DNR or withdrawal of care, Hospice)? no What co-morbidities impacted this encounter? (DM, HTN, Smoking, COPD, CAD, Cancer, CVA, Hep., AIDS, mental health diagnosis, sleep apnea, morbid obesity)? @ htn Was patient admitted / discharged? @Upon arrival patient was placed into room 12. A thorough history and physical exam was performed. She is placed on continuous pulse ox and cardiac monitoring. 12-lead EKG was obtained. Patient is in A. fib however it is rate controlled. IV is established laboratory studies are conducted. Patient was swabbed for a viral panel. Urinalysis is obtained. Laboratory studies are reviewed and within normal limits. Urinalysis does demonstrate UTI. Patient given a dose of Rocephin. We did perform an ambulatory test for which the patient's heart rate does go up to 100 however patient does not have rapid ventricular rate. I did discuss the treatment options with the patient. She will go home at this time and is instructed to call the office in the morning to make an appointment with Dr. Smiley. She is rate controlled. She will be discharged home on antibiotics. If she has any new or worsening symptoms she should return to the emergency room. Patient was agreeable treatment plan and she is discharged home in stable condition Undiagnosed new problem with uncertain prognosis? yes Drug Therapy requiring intensive monitoring for toxicity (Heparin, Nitro, I nsulin, Cardizem)? no Were any procedures done? no Diagnosis/symptom? acute uti Acute, or Chronic, or Acute on Chronic? acute Uncomplicated (without systemic symptoms) or Complicated (systemic symptoms)? complicated Side effects of treatment? allergic reaction possible Exacerbation, Progression, or Severe Exacerbation] no Poses a threat to life or bodily function? no Diagnosis/symptom? persistent afib Acute, or Chronic, or Acute on Chronic? chronic Uncomplicated (without systemic symptoms) or Complicated (systemic symptoms)? complicated Side effects of treatment? bradycardia Exacerbation, Progression, or Severe Exacerbation] progression Poses a threat to life or bodily function? yes - Lab Data Result diagrams: 05/04/22 17:56 05/04/22 17:56 Lab Results 01/05/23 01/05/23 01/05/23 Range/Units 17:56 17:56 17:56 WBC 8.3 (3.8-10.6) k/uL RBC 6.49 H (3.80-5.40) m/uL Hgb 12.6 (11.4-16.0) gm/dL Hct 40.3 (34.0-46.0) % MCV 62.0 L (80.0-100.0) fL MCH 19.5 L (25.0-35.0) pg MCHC 31.4 (31.0-37.0) g/dL RDW 17.0 H (11.5-15.5) % Plt Count 253 (150-450) k/uL MPV 7.5 Neutrophils % 62 % Lymphocytes % 30 % Monocytes % 4 % Eosinophils % 1 % Basophils % 0 % Neutrophils # 5.1 (1.3-7.7) k/uL Lymphocytes # 2.5 (1.0-4.8) k/uL Monocytes # 0.4 (0-1.0) k/uL Eosinophils # 0.1 (0-0.7) k/uL Basophils # 0.0 (0-0.2) k/uL Hypochromasia Marked Anisocytosis Slight Microcytosis Marked PT 10.6 (9.0-12.0) sec INR 1.0 (<1.2) APTT 26.7 (22.0-30.0) sec Sodium 137 (137-145) mmol/L Potassium 4.2 (3.5-5.1) mmol/L Chloride 105 (98-107) mmol/L Carbon Dioxide 22 (22-30) mmol/L Anion Gap 10 mmol/L BUN 18 H (7-17) mg/dL Creatinine 1.14 H (0.52-1.04) mg/dL Est GFR (CKD-EPI)AfAm 52 (>60 ml/min/1.73 sqM) Est GFR (CKD-EPI)NonAf 45 (>60 ml/min/1.73 sqM) Glucose 121 H (74-99) mg/dL Calcium 9.3 (8.4-10.2) mg/dL Total Bilirubin 0.6 (0.2-1.3) mg/dL AST 22 (14-36) U/L ALT 13 (4-34) U/L Alkaline Phosphatase 80 (38-126) U/L Troponin I (0.000-0.034) ng/mL Total Protein 7.4 (6.3-8.2) g/dL Albumin 4.5 (3.5-5.0) g/dL Urine Color Urine Appearance (Clear) Urine pH (5.0-8.0) Ur Specific [place] (1.001-1.035) Urine Protein (Negative) Urine Glucose (UA) (Negative) Urine Ketones (Negative) Urine Blood (Negative) Urine Nitrite (Negative) Urine Bilirubin (Negative) Urine Urobilinogen (<2.0) mg/dL Ur Leukocyte Esterase (Negative) Urine RBC (0-5) /hpf Urine WBC (0-5) /hpf Urine WBC Clumps (None) /hpf Ur Squamous Epith Cells (0-4) /hpf Urine Bacteria (None) /hpf Hyaline Casts (0-2) /lpf Urine Mucus (None) /hpf Influenza Type A (PCR) (Not Detectd) Influenza Type B (PCR) (Not Detectd) RSV (PCR) (Not Detectd) SARS-CoV-2 (PCR) (Not Detectd) 05/04/22 05/04/22 05/04/22 Range/Units 17:56 17:56 17:56 WBC (3.8-10.6) k/uL RBC (3.80-5.40) m/uL Hgb (11.4-16.0) gm/dL Hct (34.0-46.0) % MCV (80.0-100.0) fL MCH (25.0-35.0) pg MCHC (31.0-37.0) g/dL RDW (11.5-15.5) % Plt Count (150-450) k/uL MPV Neutrophils % % Lymphocytes % % Monocytes % % Eosinophils % % Basophils % % Neutrophils # (1.3-7.7) k/uL Lymphocytes # (1.0-4.8) k/uL Monocytes # (0-1.0) k/uL Eosinophils # (0-0.7) k/uL Basophils # (0-0.2) k/uL Hypochromasia Anisocytosis Microcytosis PT (9.0-12.0) sec INR (<1.2) APTT (22.0-30.0) sec Sodium (137-145) mmol/L Potassium (3.5-5.1) mmol/L Chloride (98-107) mmol/L Carbon Dioxide (22-30) mmol/L Anion Gap mmol/L BUN (7-17) mg/dL Creatinine (0.52-1.04) mg/dL Est GFR (CKD-EPI)AfAm (>60 ml/min/1.73 sqM) Est GFR (CKD-EPI)NonAf (>60 ml/min/1.73 sqM) Glucose (74-99) mg/dL Calcium (8.4-10.2) mg/dL Total Bilirubin (0.2-1.3) mg/dL AST (14-36) U/L ALT (4-34) U/L Alkaline Phosphatase (38-126) U/L Troponin I <0.012 (0.000-0.034) ng/mL Total Protein (6.3-8.2) g/dL Albumin (3.5-5.0) g/dL Urine Color Yellow Urine Appearance Cloudy H (Clear) Urine pH 5.5 (5.0-8.0) Ur Specific [place] 1.016 (1.001-1.035) Urine Protein Trace H (Negative) Urine Glucose (UA) Negative (Negative) Urine Ketones Negative (Negative) Urine Blood Negative (Negative) Urine Nitrite Negative (Negative) Urine Bilirubin Negative (Negative) Urine Urobilinogen <2.0 (<2.0) mg/dL Ur Leukocyte Esterase Large H (Negative) Urine RBC 3 (0-5) /hpf Urine WBC >182 H (0-5) /hpf Urine WBC Clumps Few H (None) /hpf Ur Squamous Epith Cells 2 (0-4) /hpf Urine Bacteria Many H (None) /hpf Hyaline Casts 12 H (0-2) /lpf Urine Mucus Moderate H (None) /hpf Influenza Type A (PCR) Not Detected (Not Detectd) Influenza Type B (PCR) Not Detected (Not Detectd) RSV (PCR) Not Detected (Not Detectd) SARS-CoV-2 (PCR) Not Detected (Not Detectd) - EKG Data EKG Comments: EKG demonstrates A. fib with a rate of 80. QRS 98. QTC of 450. No acute ST segment elevations or depressions Disposition Clinical Impression: Afib, UTI (urinary tract infection) Disposition: HOME SELF-CARE Condition: Stable Instructions (If sedation given, give patient instructions): Urinary Tract Inf ection in Women (ED), Dyspnea (ED) Additional Instructions: Please take the antibiotics as directed. Call the office in the morning to make a sooner appointment with Dr. Smiley. Return for any new or worsening symptoms Prescriptions: Cephalexin [Keflex] 500 mg PO BID #14 cap Is patient prescribed a controlled substance at d/c from ED?: No Referrals: Johnson Whalen DO [Primary Care Provider] - 1-2 days Isiah Smiley MD [STAFF PHYSICIAN] - 1-2 days Time of Disposition: 23:38
[2022-05-04] MEDS ORDERED: SODIUM CHLORIDE 0.9% 1,000 ML IV ONE (21:58)
[2022-05-04] MEDS ORDERED: cefTRIAXone IN SWFI 1,000 MG/10 ML SYRINGE IVP STA (21:59)
[2022-05-04 23:41] VITALS: BP 151/74; PULSE 70; TEMP 97.4
== END 2022-05-04 23:47 | disposition home or self-care (01) ==
LOC: EC 15:37
DX: N39.0 Urinary tract infection, site not specified (principal); I48.91 Unspecified atrial fibrillation; E11.9 Type 2 diabetes mellitus without complications; I10 Essential (primary) hypertension; M19.90 Unspecified osteoarthritis, unspecified site; Z79.84 Long term (current) use of oral hypoglycemic drugs; Z79.1 Long term (current) use of non-steroidal anti-inflammatories (NSAID); Z79.01 Long term (current) use of anticoagulants; Z79.899 Other long term (current) drug therapy; Z88.0 Allergy status to penicillin; Z88.2 Allergy status to sulfonamides; Z20.822 Contact with and (suspected) exposure to COVID-19
CPT/HCPCS: 36415; 93005; 80053; 84484; 85025; 85610; 85730; 81001; 87086; 87077; 87186; 87636; 71046; 99285; 96374; J0696

== ENCOUNTER 2022-05-17 08:45 | Day surgery (SDC) | payer MEDICARE, BC ==
[~2022-05-17 08:45] MED LIST changes: +ALPRAZolam 0.25 MG TAB PO PRN; +ALPRAZolam 0.5 MG TAB PO PRN; +ASPIRIN 325 MG TAB PO STA; +ATORVASTATIN 80 MG TAB PO STA; +HEPARIN SODIUM,PORCINE 10,000 UNIT in SODIUM CHLORIDE 0.9% 1,000 ML IRRIGATION PRN; +HEPARIN SODIUM,PORCINE 2,500 UNIT in SODIUM CHLORIDE 0.9% 250 ML IRRIGATION PRN; -LACTATED RINGERS 1,000 ML IV ONE; -LACTATED RINGERS 1,000 ML IV SCH; +NITROGLYCERIN SL TABS 0.4 MG TAB SUBLINGUAL PRN; -PROPOFOL 10 MG/ML 20 ML VIAL IV ONE; -SODIUM CHLORIDE 0.9% 1,000 ML IV SCH
[2022-05-17 09:03] VITALS: RESP 18; TEMP 98
[2022-05-17 09:06] LABS: Glucose,Whole Blood 137 mg/dL (70-110)
[2022-05-17] MEDS ORDERED: SODIUM CHLORIDE 0.9% 1,000 ML in EMPTY BAG 1 BAG IV ONE (11:00)
[2022-05-17] MEDS ORDERED: VERAPAMIL 2.5 MG/ML 2 ML AMP ONE (11:05)
[2022-05-17] MEDS ORDERED: HEPARIN SODIUM 1,000 UN/ML (10ML VL) ONE (11:05)
[2022-05-17] MEDS ORDERED: fentaNYL (PF) 50 MCG/ML 2 ML AMP ONE (11:05)
[2022-05-17] MEDS ORDERED: BENZOCAINE SPRAY 1 CAN TOPICAL ONE (11:28)
[2022-05-17] MEDS ORDERED: MIDAZOLAM 2 MG/2 ML VIAL IVP ONE (11:29)
[2022-05-17] MEDS ORDERED: fentaNYL (PF) 50 MCG/ML 2 ML AMP IVP ONE (11:29)
[2022-05-17] MEDS ORDERED: LIDOCAINE 1% INJ 10MG/ML (5 ML VIAL-PF) SQ ONE (11:45)
[2022-05-17] MEDS ORDERED: VERAPAMIL SYRINGE (5 MG/10 ML) INTRAARTER ONE (11:46)
[2022-05-17] MEDS: HEPARIN SODIUM 1,000 UN/ML (10ML VL) IV ONE ×2 (11:53→12:05)
[2022-05-17] MEDS ORDERED: ADENOSINE 90 MG in SODIUM CHLORIDE 0.9% 60 ML IVP ONE (12:15)
[2022-05-17] MEDS ORDERED: IOPAMIDOL-370 125ML BTL INJ ONE (12:24)
[2022-05-17] MEDS ORDERED: RX INFO: IV CONTRAST WAS GIVEN 1 EACH MISC MISCELLANE PRN (12:32)
--- NOTE | 2022-05-17 12:37 | P.PCN ---
Date of Procedure: 05/17/22 Operative Findings: TRANSESOPHAGEAL ECHOCARDIOGRAM MANAGER MARKET DEVELOPMENT: GRACIELA JACKMAN MD, RPVI INDICATION: valvular heart disease SEDATION: Conscious sedation COMPLICATION: None LEVEL OF SEDATION moderate was sedation length of 10 minutes PROCEDURE DESCRIPTION: After obtaining an informed consent, the patient was brought to transesophageal echocardiogram room. Pulse oximetry and heart monitors were attached to the patient. The patient throat was sprayed using lidocaine. The patient was turned into left lateral position. After that a bite guard was placed. After an appropriate conscious sedation was initiated, the transesophageal echocardiogram was advanced through a bite guard into the mid esophagus. A 2-D echocardiogram images, color Doppler images, continuous wave images, pulse-wave images, of various cardiac structure were performed. After that the transesophageal echocardiogram probe was advanced into the stomach and fixed to obtain transgastric view was. The probe was brought into the mid esophagus. Inter-atrial septum was interrogated using 2D images, color Doppler images, and then contrast study. After that transesophageal echocardiogram was withdrawn out and upon withdrawing the descending thoracic aorta all the way up to the [facility] was evaluated. FINDING: the left ventricular dimension and systolic function appeared to be within normal limits. The ejection fraction appears to be in the range of 50-55%. The right ventricle appeared to be of normal size and function. The aortic valve is trileaflet valve with no stenosis or insufficiency. The mitral valve appeared to be thickened was evidence of moderate mitral regurgitation. There is moderate tricuspid regurgitation was seen. No evidence of pericardial effusion. The interatrial septum appeared to be intact. The left atrial appendage appeared to be intact as well. CONCLUSION: 1. normal left ventricular dimension and systolic function 2. normal right ventricular dimension and systolic function 3. mitral annular calcification was moderate mitral regurgitation 4. thickened aortic valve leaflets with no stenosis or regurgitation 5. moderate tricuspid regurgitation 6. no evidence of pericardial effusion
--- NOTE | 2022-05-17 12:41 | P.PCN ---
Date of Procedure: 05/17/22 Operative Findings: CARDIAC CATHETERIZATION PERFORMING PHYSICIAN: Isiah Smiley MD, RPVI PROCEDURE PERFORMED: 1. Selective right and left coronary angiogram 2. FFR of the left anterior descending artery INDICATION: Shortness of breath in this 81-year-old female patient who continues to be symptomatic and she has multiple risk factors for CAD COMPLICATION: None APPROACH: Right radial artery LEVEL OF SEDATION: Moderate with a sedation length of 30 minutes PROCEDURE DESCRIPTION: After obtaining an informed consent, the patient was brought to cardiac freezer laboratory technician. Local anesthesia was performed using lidocaine subcutaneously. The right radial artery was cannulated using Seldinger technique, the guidewire passed easily, following that we advanced a 5-Bulgarian sheath dilator assembly, the wire and dilator were removed and sheath was flushed. Following that, 2 mg of verapamil along with 5000 unit heparin were given. Selective right and left coronary angiogram using a 6-Bulgarian JR4 and JL 3.5 catheters. Following that we did left heart catheterization using 6-Bulgarian pigtail catheter. The procedure was completed there was no complication. SELECTIVE CORONARY ANGIOGRAM: The right coronary artery: large-caliber vessel and a dominant vessel. It has mild disease only. Left main: angiographically normal. The left circumflex: large caliber vessel nondominant vessel. It has mild disease only. The left anterior descending artery: the mid LAD has a calcified lesion appears to be hazy with a disease appeared to be in the range of 60%. We did an FFR and that came in to be nonischemic and 0.84 FFR OF THE LAD : after zeroing the Doppler wire and equalizing between the Doppler wire and the guiding catheter which was JL 3.5 guiding catheter with did an FFR and that came in to be a nonischemic an 0.84. iFR was 0.89 CONCLUSION: Intermediate lesion involving the mid LAD. iFR was 0.89 and FFR 0.84 POSTPROCEDURE MANAGEMENT: Medical treatment at this point. Consider PCI of the LAD if the patient remains symptomatic in spite of maximize medical treatment
[2022-05-17] MEDS ORDERED: SODIUM CHLORIDE 0.9% 1,000 ML IV SCH (12:45)
[2022-05-17] MEDS ORDERED: SODIUM CHLORIDE 0.9% 500 ML 500 ML IV ONE (14:00)
[2022-05-17 15:54] VITALS: BP 164/72; PULSE 72
== END 2022-05-17 16:35 | disposition home or self-care (01) ==
LOC: CATHCVL 08:45
PROVIDERS: ATTEND Internal Medicine Interventional Cardiology
DX: I08.1 Rheumatic disorders of both mitral and tricuspid valves (principal); I25.10 Atherosclerotic heart disease of native coronary artery without angina pectoris; I48.19 Other persistent atrial fibrillation; I10 Essential (primary) hypertension; E11.9 Type 2 diabetes mellitus without complications; E78.5 Hyperlipidemia, unspecified; Z86.2 Personal history of diseases of the blood and blood-forming organs and certain disorders involving the immune mechanism; E78.00 Pure hypercholesterolemia, unspecified; Z88.0 Allergy status to penicillin; Z88.2 Allergy status to sulfonamides; Z79.84 Long term (current) use of oral hypoglycemic drugs; Z79.811 Long term (current) use of aromatase inhibitors; Z79.891 Long term (current) use of opiate analgesic; Z79.899 Other long term (current) drug therapy
CPT/HCPCS: 93312; 93320; 93325; 93571; 93454; C1769 ×4; C1887; C1894; J2250; J2001; J3010; J1644; J0153; Q9967

== ENCOUNTER 2022-05-21 17:45 | Emergency (ER) | payer MEDICARE, BC ==
[2022-05-21 17:52] VITALS: TEMP 97.1
--- NOTE | 2022-05-21 18:29 | ED ---
General Adult HPI - General Chief complaint: Recheck/Abnormal Lab/Rx Stated complaint: S/P heart catherization-bruising Time Seen by Provider: 05/21/22 17:53 Source: patient, family (Daughter) Mode of arrival: ambulatory Limitations: no limitations - History of Present Illness Initial comments: Patient presents to the ED with her daughter for evaluation. Patient states that she had a right upper extremity cardiac catheterization procedure performed by Dr. Smiley (cardiology) 4 days ago, and she states that she has had right wrist pain and bruising that has developed today. Patient also states that she has developed right upper arm pain today. Patient states that she did not have these symptoms until today. Patient states that she is on Eliquis anticoagulation therapy due to atrial fibrillation. Patient denies trauma or injury, fever or chills, headache, focal neuro deficit, chest pain or pressure, dyspnea, palpitations, dizziness, neck/back pain, abdominal pain, nausea or vomiting, or any other symptoms or complaints. - Related Data Home Medications Medication Instructions Recorded Confirmed metFORMIN HCL [Glucophage] 1,000 mg PO BID 03/27/16 05/17/22 Cinnamon Bark [Cinnamon] 500 mg PO HS 07/16/18 05/17/22 Turmeric Root Extract [Turmeric] 1,000 mg PO HS 07/16/18 05/17/22 Red Yeast Rice 600 mg PO BID 04/03/20 05/17/22 Zinc 50 mg PO DAILY 04/03/20 05/17/22 Amiodarone [Cordarone] 200 mg PO DAILY 04/10/22 05/17/22 Apixaban [Eliquis] 2.5 mg PO BID 05/04/22 05/17/22 Ascorbic Acid [Vitamin C] 250 mg PO DAILY 05/04/22 05/17/22 Cholecalciferol [Vitamin D3 (125 125 mcg PO DAILY 05/04/22 05/17/22 Mcg = 5000 Iu)] Fish Oil/Dha/Epa [Fish Oil 1,200 2 cap PO HS 05/04/22 05/17/22 mg Fish Oil] Magnesium Oxide 400 mg PO BID 05/04/22 05/17/22 Ubidecarenone [Coenzyme Q10] 200 mg PO DAILY 05/04/22 05/17/22 amLODIPine [Norvasc] 5 mg PO DAILY 05/04/22 05/17/22 Aspirin 81 mg PO DAILY PRN 05/17/22 05/17/22 Allergies Allergy/AdvReac Type Severity Reaction Status Date / Time Penicillins Allergy Rash/Hives Verified 05/21/22 17:52 sulfamethoxazole Allergy Rash/Hives Verified 05/21/22 17:52 [From Bactrim] trimethoprim [From Bactrim] Allergy Rash/Hives Verified 05/21/22 17:52 Review of Systems ROS Statement: Those systems with pertinent positive or pertinent negative responses have been documented in the HPI. ROS Other: All systems not noted in ROS Statement are negative. Past Medical History Past Medical History: Atrial Fibrillation, Blood Disorder, Diabetes Mellitus, GERD/Reflux, Hearing Disorder / Deafness, Hyperlipidemia, Hypertension, Osteoarthritis (OA), Renal Disease Additional Past Medical History / Comment(s): BACK PAIN, THALASSEMIA MINOR, sees kidney dr regularly, torn rotator cuff right shoulder-no surgery, worsening SOB w/exertion recently & seen in [facility] for & also just finished A/B for UTI History of Any Multi-Drug Resistant Organisms: None Reported Past Surgical History: Hysterectomy, Orthopedic Surgery, Tonsillectomy Additional Past Surgical History / Comment(s): right elbow surgery, kamala. cataracts removed, ORIF left hip, recent cardioversion Past Anesthesia/Blood Transfusion Reactions: No Reported Reaction Past Psychological History: No Psychological Hx Reported Smoking Status: Never smoker Past Alcohol Use History: None Reported Past Drug Use History: None Reported - Past Family History Mother Family Medical History: No Reported History Additional Family Medical History / Comment(s): THALLISEMIA AND SIBLINGS ALSO. General Exam Limitations: no limitations General appearance: alert, in no apparent distress Head exam: Present: atraumatic, normocephalic Eye exam: Present: normal appearance, EOMI ENT exam: Present: mucous membranes moist Neck exam: Present: other (Trachea is in midline). Absent: tenderness Respiratory exam: Present: normal lung sounds bilaterally. Absent: respiratory distress, wheezes, rales, rhonchi, stridor Cardiovascular Exam: Present: regular rate, normal rhythm, normal heart sounds, other (Normal radial pulses bilaterally) Extremities exam: Present: full ROM, other (Tenderness and ecchymosis is noted over right radial wrist at site of her recent cardiac catheterization procedure; mild tenderness is noted over right upper arm without any swelling or ecchymosis noted). Absent: pedal edema, calf tenderness Neurological exam: Present: alert, oriented X3. Absent: motor sensory deficit Psychiatric exam: Present: normal affect, normal mood Skin exam: Present: warm, dry, intact Course Vital Signs 05/21/22 05/21/22 17:46 18:52 Temperature 97.1 F L Pulse Rate 69 93 Respiratory 16 18 Rate Blood Pressure 156/93 117/66 O2 Sat by Pulse 100 98 Oximetry - Reevaluation(s) Reevaluation #1: 05/21/22 20:22 Patient remains alert and breathing comfortably. Patient denies development of any new pain or symptoms while in the ED. Patient and daughter are aware the patient's test results, and they feel comfortable with the patient being discharged home at this time. They were counseled about ecchymosis/extremity pain status post cardiac catheterization. They were clearly explained return and follow-up instructions, and they feel comfortable with this plan. Medical Decision Making - Medical Decision Making Was pt. sent in by a medical professional or institution (, PA, [employer], urgent care, hospital, or halfway...) When possible be specific @ -[No] Did you speak to anyone other than the patient for history (EMS, parent, family, police, friend...)? What history was obtained from this source @ -[No] Did you review nursing and triage notes (agree or disagree)? Why? @ -[I reviewed and agree with nursing and triage notes] Were old charts reviewed (outside hosp., previous admission, EMS record, old EKG, old radiological studies, urgent care reports/EKG's, halfway records)? Report findings @ -[No old charts were reviewed] Differential Diagnosis (chest pain, altered mental status, abdominal pain women, abdominal pain men, vaginal bleeding, weakness, fever, dyspnea, syncope, headache, dizziness, GI bleed, back pain, seizure, CVA, palpatations, mental health)? @ -[Upper extremity pain, strain, ecchymosis, hematoma, DVT, pseudoaneurysm] EKG interpreted by me (3pts min.). @ -[None done] X-rays interpreted by me (1pt min.). @ -[None done] CT interpreted by me (1pt min.). @ -[None done] U/S interpreted by me (1pt. min.). @ -No What testing was considered but not performed or refused? (CT, X-rays, U/S, labs)? Why? @ -[None] What meds were considered but not given or refused? Why? @ -[None] Did you discuss the management of the patient with other professionals (professionals i.e. , PA, [employer], lab, RT, psych nurse, social sciences research scientist, audio engineer, teacher, natural resource officer, rn case manager hospice)? Give summary @ -[No] Was smoking cessation discussed for >3mins.? @ -[No] Was critical care preformed (if so, how long)? @ -[No] Were there social determinants of health that impacted care today? How? (Homelessness, low income, unemployed, alcoholism, drug addiction, transportation, low edu. Level, literacy, decrease access to med. care, usp, rehab)? @ -[No] Was there de-escalation of care discussed even if they declined (Discuss DNR or withdrawal of care, Hospice)? DNR status @ -[No] What co-morbidities impacted this encounter? (DM, HTN, Smoking, COPD, CAD, Cancer, CVA, ARF, Chemo, Hep., AIDS, mental health diagnosis, sleep apnea, morbid obesity)? @ -[None] Was patient admitted / discharged? Hospital course, mention meds given and route, prescriptions, significant lab abnormalities, going to OR and other pertinent info. @ -Patient reports having right upper extremity bruising and pain status post cardiac catheterization procedure. Patient's ultrasounds are negative for DVT and pseudoaneurysm. I suspect that the patient's symptoms likely secondary to ecchymosis/leakage of blood from cannulation site. I do not suspect an emergent medical condition at this time. Will discharge patient home with her daughter at this time. Undiagnosed new problem with uncertain prognosis? @ -[No] Drug Therapy requiring intensive monitoring for toxicity (Heparin, Nitro, Insulin, Cardizem)? @ -[No] Were any procedures done? @ -[No] Diagnosis/symptom? @ -Right upper extremity ecchymosis and pain status post cardiac catheterization Acute, or Chronic, or Acute on Chronic? @ -Acute Uncomplicated (without systemic symptoms) or Complicated (systemic symptoms)? @ -Uncomplicated Side effects of treatment? @ -[No] Exacerbation, Progression, or Severe Exacerbation? @ -[No] Poses a threat to life or bodily function? How? (Chest pain, [place], [place], pneumonia, PE, COPD, DKA, ARF, appy, cholecystitis, CVA, Diverticulitis, Homicidal, Suicidal, threat to staff... and all critical care pts) @ -[No] - Radiology Data Right upper extremity venous duplex ultrasound: No evidence of deep vein thrombosis in the right arm. Right upper extremity pseudoaneurysm ultrasound: Radial artery and distal brachial artery appear within normal limits. No evidence of pseudoaneurysm. No evidence of hematoma. Disposition Clinical Impression: Right upper limb pain, Ecchymosis, S/P cardiac cath Disposition: HOME SELF-CARE Condition: Stable Is patient prescribed a controlled substance at d/c from ED?: No Referrals: Johnson Whalen DO [Primary Care Provider] - 1-2 days Time of Disposition: 20:29
--- NOTE | 2022-05-21 19:41 | US ---
EXAMINATION TYPE: US upper ext pseudo RT DATE OF EXAM: 05/21/2022 COMPARISON: NONE CLINICAL HISTORY: Right wrist pain and ecchymosis s/p cardiac cath. right radial heart cath 5 days pr ior, swelling and mild bruising at wrist and medial elbow FINDINGS: Soft tissue scan of radial artery from wrist to antecubital fossa appears wnl. Normal colo r flow detected and normal venous pattern seen within vein. Radial does not join at brach artery but connects to axillary artery. No pseudoaneurysm or other abnormality noted. IMPRESSION: Radial artery and distal brachial artery appear within normal limits. No evidence of pseu doaneurysm. No evidence of hematoma.
--- NOTE | 2022-05-21 19:42 | US ---
EXAMINATION TYPE: US venous doppler duplex UE RT DATE OF EXAM: 05/21/2022 COMPARISON: NONE CLINICAL HISTORY: Right upper arm pain status post cardiac cath. heart cath 5 days ago, swelling to m edial elbow, no h/o dvt SIDE PERFORMED: Right Wrist patency of the subclavian brachial axillary vein of the right arm. Right Arm: Negative for DVT IMPRESSION: No evidence of deep vein thrombosis in the right arm.
[2022-05-21 21:07] VITALS: BP 112/68; PULSE 89; RESP 16
== END 2022-05-21 21:00 | disposition home or self-care (01) ==
LOC: EC 17:45
DX: M25.531 Pain in right wrist (principal); R58 Hemorrhage, not elsewhere classified; Z98.890 Other specified postprocedural states; I48.91 Unspecified atrial fibrillation; I10 Essential (primary) hypertension; E11.9 Type 2 diabetes mellitus without complications; M19.90 Unspecified osteoarthritis, unspecified site; Z88.0 Allergy status to penicillin; Z88.2 Allergy status to sulfonamides; Z79.82 Long term (current) use of aspirin; Z79.84 Long term (current) use of oral hypoglycemic drugs; Z79.01 Long term (current) use of anticoagulants; Z79.1 Long term (current) use of non-steroidal anti-inflammatories (NSAID); Z79.899 Other long term (current) drug therapy
CPT/HCPCS: 93975; 99284

== ENCOUNTER 2023-04-25 12:07 | Emergency (ER) | payer MEDICARE, BC ==
--- NOTE | 2023-04-25 12:44 | ED ---
General Adult HPI - General Stated complaint: Fall/Dizziness Time Seen by Provider: 04/25/23 12:42 - History of Present Illness Initial comments: 82-year-old female on Eliquis presents to the ED with a chief complaint of fall. States a few days ago slipped on a rug, fell onto her knees, and hit her head. States she did not realize that she hit her head and was told by a family member that she had a bruise on her head recently. Notes some headache and some confusion. Secondary to symptoms presented to the ED for further evaluation. Denies chest pain or shortness of breath. No other complaints. - Related Data Home Medications Medication Instructions Recorded Confirmed metFORMIN HCL [Glucophage] 1,000 mg PO BID 03/27/16 06/15/22 Cinnamon Bark [Cinnamon] 500 mg PO HS 07/16/18 06/15/22 Turmeric Root Extract [Turmeric] 1,000 mg PO HS 07/16/18 06/15/22 Red Yeast Rice 600 mg PO BID 04/03/20 06/15/22 Zinc 50 mg PO DAILY 04/03/20 06/15/22 Apixaban [Eliquis] 5 mg PO BID 05/04/22 06/15/22 Ascorbic Acid [Vitamin C] 250 mg PO DAILY 05/04/22 06/15/22 Cholecalciferol [Vitamin D3 (125 125 mcg PO DAILY 05/04/22 06/15/22 Mcg = 5000 Iu)] Magnesium Oxide 400 mg PO BID 05/04/22 06/15/22 Ubidecarenone [Coenzyme Q10] 200 mg PO DAILY 05/04/22 06/15/22 amLODIPine [Norvasc] 5 mg PO DAILY 05/04/22 06/15/22 Aspirin 81 mg PO DAILY PRN 05/17/22 06/12/22 Previous Rx's Medication Instructions Recorded Amiodarone [Cordarone] 100 mg PO DAILY #50 tab 06/15/22 Metoprolol Succinate [Toprol XL] 50 mg PO DAILY #90 tab 06/15/22 Allergies Allergy/AdvReac Type Severity Reaction Status Date / Time Penicillins Allergy Rash/Hives Verified 04/25/23 13:35 sulfamethoxazole Allergy Rash/Hives Verified 04/25/23 13:35 [From Bactrim] trimethoprim [From Bactrim] Allergy Rash/Hives Verified 04/25/23 13:35 Review of Systems ROS Statement: Those systems with pertinent positive or pertinent negative responses have been documented in the HPI. ROS Other: All systems not noted in ROS Statement are negative. Past Medical History Past Medical History: Atrial Fibrillation, Blood Disorder, Diabetes Mellitus, Hearing Disorder / Deafness, Hyperlipidemia, Hypertension, Osteoarthritis (OA), Renal Disease Additional Past Medical History / Comment(s): BACK PAIN, THALASSEMIA MINOR, sees kidney dr regularly, torn rotator cuff right shoulder-no surgery ( getting massages), worsening SOB w/exertion recently & seen in [facility] (approx 3 weeks ago) for & also just finished A/B for UTI. [place]. numbness in toes. See Dr Miller H&P History of Any Multi-Drug Resistant Organisms: None Reported Past Surgical History: Heart Catheterization, Hysterectomy, Orthopedic Surgery, Tonsillectomy Additional Past Surgical History / Comment(s): right elbow surgery, kamala. cataracts removed, ORIF left hip, recent cardioversion Past Anesthesia/Blood Transfusion Reactions: No Reported Reaction Past Psychological History: No Psychological Hx Reported Smoking Status: Never smoker Past Alcohol Use History: None Reported Past Drug Use History: None Reported - Past Family History Mother Family Medical History: No Reported History Additional Family Medical History / Comment(s): THALLISEMIA AND SIBLINGS ALSO.as well as pt's daughters. cannot take iron products. Father Family Medical History: Coronary Artery Disease (CAD) General Exam - General Exam Comments Initial Comments: Visual Physical Exam Vital signs reviewed General: Well-appearing, nontoxic, no acute distress. Head: Normocephalic. Some bruising to the forehead. Eyes: PERRLA, EOMI ENT: Airway patent Chest: Nonlabored breathing Skin: No visual rash, normal skin tone Neuro: Alert and oriented 3 Musculoskeletal: No gross abnormalities Respiratory exam: Present: normal lung sounds bilaterally Cardiovascular Exam: Present: regular rate Neurological exam: Present: alert, oriented X3 Course Vital Signs 04/25/23 13:32 Temperature 97.9 F Pulse Rate 68 Respiratory 18 Rate Blood Pressure 126/88 O2 Sat by Pulse 98 Oximetry Medical Decision Making - Medical Decision Making Was pt. sent in by a medical professional or institution (, PA, ADULT SPECIALIST, urgent care, hospital, or alf...) When possible be specific @ -No Did you speak to anyone other than the patient for history (EMS, parent, family, police, friend...)? What history was obtained from this source @ -No Did you review nursing and triage notes (agree or disagree)? Why? @ -I reviewed and agree with nursing and triage notes Were old charts reviewed (outside hosp., previous admission, EMS record, old EKG, old radiological studies, urgent care reports/EKG's, alf records)? Report findings @ -No old charts were reviewed Differential Diagnosis (chest pain, altered mental status, abdominal pain women, abdominal pain men, vaginal bleeding, weakness, fever, dyspnea, syncope, headache, dizziness, GI bleed, back pain, seizure, CVA, palpatations, mental health, musculoskeletal)? @ -Traumatic bleed, acute fracture. This is not meant to be an all-inclusive list. EKG interpreted by me (3pts min.). @ -As above X-rays interpreted by me (1pt min.). @ -None done CT interpreted by me (1pt min.). @ -CT brain and C-spine interpreted by me showed no evidence of fracture, bleed or other acute finding. U/S interpreted by me (1pt. min.). @ -None done What testing was considered but not performed or refused? (CT, X-rays, U/S, labs)? Why? @ -None What meds were considered but not given or refused? Why? @ -None Did you discuss the management of the patient with other professionals (professionals i.e. , PA, ADULT SPECIALIST, lab, RT, psych nurse, social security specialist, tile sorter, teacher, medical scientific officer, case specialist)? Give summary @ -No Was smoking cessation discussed for >3mins.? @ -No Was critical care preformed (if so, how long)? @ -No Were there social determinants of health that impacted care today? How? (Homelessness, low income, unemployed, alcoholism, drug addiction, transportation, low edu. Level, literacy, decrease access to med. care, nursing home, rehab)? @ -No Was there de-escalation of care discussed even if they declined (Discuss DNR or withdrawal of care, Hospice)? DNR status @ -No What co-morbidities impacted this encounter? (DM, HTN, Smoking, COPD, CAD, Cancer, CVA, ARF, Chemo, Hep., AIDS, mental health diagnosis, sleep apnea, morbid obesity)? @ -A. fib on Eliquis Was patient admitted / discharged? Hospital course, mention meds given and route, prescriptions, significant lab abnormalities, going to OR and other pertinent info. @ -Discharge 82-year-old female with a past medical history significant for A. fib on Eliquis presented to the ED with a chief complaint of head injury. Patient notes she slipped on the rug a week ago and fell to her knees and did not realize she hit her head however over the holiday weekend her family noticed some bruising on her had and due to her being on Eliquis told the patient to present to the ED for further evaluation. Head CT here shows no acute findings. Laboratory studies unremarkable. At this time vital signs stable afebrile. Discharged home in stable condition. Discussed return precautions with patient who verbalizes agreement. Undiagnosed new problem with uncertain prognosis? @ -No Drug Therapy requiring intensive monitoring for toxicity (Heparin, Nitro, Insulin, Cardizem)? @ -No Were any procedures done? @ -No Diagnosis/symptom? @ -Head injury Acute, or Chronic, or Acute on Chronic? @ -Acute Uncomplicated (without systemic symptoms) or Complicated (systemic symptoms)? @ -Uncomplicated Side effects of treatment? @ -No Exacerbation, Progression, or Severe Exacerbation? @ -No Poses a threat to life or bodily function? How? (Chest pain, [place], [place], pneumonia, PE, COPD, DKA, ARF, appy, cholecystitis, CVA, Diverticulitis, Homicidal, Suicidal, threat to staff... and all critical care pts) @ -No - Lab Data Result diagrams: 04/25/23 13:35 04/25/23 13:35 Lab Results 04/25/23 04/25/23 Range/Units 13:35 13:35 WBC 5.9 (3.8-10.6) k/uL RBC 5.38 (3.80-5.40) m/uL Hgb 10.6 L (11.4-16.0) gm/dL Hct 33.3 L (34.0-46.0) % MCV 61.8 L (80.0-100.0) fL MCH 19.7 L (25.0-35.0) pg MCHC 31.8 (31.0-37.0) g/dL RDW 16.0 H (11.5-15.5) % Plt Count 245 (150-450) k/uL MPV 7.1 Neutrophils % 57 % Lymphocytes % 31 % Monocytes % 5 % Eosinophils % 3 % Basophils % 1 % Neutrophils # 3.4 (1.3-7.7) k/uL Lymphocytes # 1.8 (1.0-4.8) k/uL Monocytes # 0.3 (0-1.0) k/uL Eosinophils # 0.2 (0-0.7) k/uL Basophils # 0.0 (0-0.2) k/uL Hypochromasia Slight Microcytosis Marked Sodium 139 (137-145) mmol/L Potassium 5.2 H (3.5-5.1) mmol/L Chloride 103 (98-107) mmol/L Carbon Dioxide 21 L (22-30) mmol/L Anion Gap 15 mmol/L BUN 32 H (7-17) mg/dL Creatinine 0.94 (0.52-1.04) mg/dL Est GFR (CKD-EPI)AfAm 65 (>60 ml/min/1.73 sqM) Est GFR (CKD-EPI)NonAf 56 (>60 ml/min/1.73 sqM) Glucose 113 H (74-99) mg/dL Calcium 9.8 (8.4-10.2) mg/dL Total Bilirubin 0.5 (0.2-1.3) mg/dL AST 24 (14-36) U/L ALT 12 (4-34) U/L Alkaline Phosphatase 69 (38-126) U/L Total Protein 7.3 (6.3-8.2) g/dL Albumin 4.4 (3.5-5.0) g/dL Disposition Clinical Impression: Head injury Disposition: HOME SELF-CARE Condition: Good Additional Instructions: Please return to the Emergency Department if symptoms worsen or any other concerns. Please follow up with your primary care provider. Is patient prescribed a controlled substance at d/c from ED?: No Referrals: Johnson Whalen DO [Primary Care Provider] - 1-2 days Time of Disposition: 18:01
[2023-04-25 13:54] VITALS: BP 126/88; PULSE 68; RESP 18; TEMP 97.9
--- NOTE | 2023-04-25 14:11 | XR ---
EXAMINATION TYPE: XR KUB DATE OF EXAM: 04/25/2023 1:45 PM CLINICAL INDICATION:Female, 82 years old with history of abdominal pain; COMPARISON: None. TECHNIQUE: One radiographic view of the abdomen was obtained. FINDINGS: The bowel gas pattern is nonspecific without dilated loops of small or large bowel. There i s no evidence for organomegaly or pneumoperitoneum. The osseous structures are intact. No abnormal calcifications are present. Fecal material and gas are demonstrated throughout the colon and rectum. Left hip fixation hardware is intact. Severe degeneration changes of the hips with joint space narro wing as bifurcation. Multiple degeneration changes of the spine. IMPRESSION: Nonspecific bowel gas pattern without radiographic evidence for acute process. Bilateral severe osteoarthritis of the hips.
[2023-04-25 14:16] LABS: Basophils % (A) 1 %; Eosinophils # (A) 0.2 k/uL (0-0.7); Eosinophils % (A) 3 %; HCT 33.3 % (34.0-46.0); HGB 10.6 gm/dL (11.4-16.0); Hypochromasia Slight; Lymphocytes # (A) 1.8 k/uL (1.0-4.8); Lymphocytes % (A) 31 %; MCH 19.7 pg (25.0-35.0); MCHC 31.8 g/dL (31.0-37.0); MCV 61.8 fL (80.0-100.0); Mean Platelet Volume 7.1; Microcytosis Marked; Monocytes # (A) 0.3 k/uL (0-1.0); Monocytes % (A) 5 %; Neutrophils # (A) 3.4 k/uL (1.3-7.7); Neutrophils % (A) 57 %; Platelet Count 245 k/uL (150-450); RBC 5.38 m/uL (3.80-5.40); WBC 5.9 k/uL (3.8-10.6)
[2023-04-25 14:22] LABS: ALT 12 U/L (4-34); AST 24 U/L (14-36); African American GFR (CKD) 65 (>60 ml/min/1.73 sqM); Albumin 4.4 g/dL (3.5-5.0); Alkaline Phosphatase 69 U/L (38-126); Anion Gap 15 mmol/L; Blood Urea Nitrogen 32 mg/dL (7-17); Calcium 9.8 mg/dL (8.4-10.2); Carbon Dioxide 21 mmol/L (22-30); Chloride 103 mmol/L (98-107); Glucose 113 mg/dL (74-99); Non-African American GFR(CKD) 56 (>60 ml/min/1.73 sqM); Potassium 5.2 mmol/L (3.5-5.1); Sodium 139 mmol/L (137-145); Total Bilirubin 0.5 mg/dL (0.2-1.3); Total Protein 7.3 g/dL (6.3-8.2)
--- NOTE | 2023-04-25 15:09 | CT ---
EXAMINATION TYPE: CT brain cspine wo con CT DLP: 1519.9 mGycm, Automated exposure control for dose reduction was used. DATE OF EXAM: 04/25/2023 1:29 PM COMPARISON: CT brain 09/22/2021 CLINICAL INDICATION:Female, 82 years old with history of s/p fall on thinners; s/p fall on thinners, c/o JUÁREZ, confusion. TECHNIQUE: Brain: Multiple axial CT images of the brain were obtained without IV contrast. Cspine: Axial CT images from the skull base to the inferior aspect of T2 we obtained without intraven ous contrast. Coronal and sagittal reformatted images were also reviewed. FINDINGS: Brain: Extra-axial spaces: No abnormal extra-axial fluid collections. Ventricular system: Appear dilated in proportion to the degree of cerebral atrophy. Cerebral parenchyma: No increased attenuation to suggest acute intraparenchymal hemorrhage. The gra y-white matter interface appears maintained. Moderate generalized brain atrophy. Patchy and some co nfluent hypoattenuating areas are seen within the cerebral white matter, nonspecific but most often s een with chronic microvascular ischemic changes; moderate in degree. Cerebellum: No acute abnormality. Mass effect: No evidence of mass effect or midline shift. Intracranial vasculature: Atherosclerotic calcifications of the larger arteries near the skull base. Soft tissues: Normal. Visualized orbits: Orbital contents appear grossly intact. Calvarium/osseous structures: No evidence of calvarial fracture. Paranasal sinuses and mastoid air cells: Mild scattered paranasal sinus disease. Caitlin bullosa on t he right. Mild nasal septal deviation towards the left. MRI is more sensitive for detecting acute processes such as infarct, and may be considered if clinica lly warranted. Cervical spine: Fracture: No evidence of fracture. Developmentally incomplete fusion of the posterior arch of C1. Osseous structures, spinal canal/neural foramina: Generalized osteopenia. Generally mild degenerative changes of the cervical spine especially for patient age. C2-C3 shows no significant stenosis. C3-C4 mild right foraminal stenosis. C4-C5, mild right foraminal stenosis. C5-C6, no significant stenoses. C6-C7, degenerative disc disease with disc osteophyte complex posteriorly causing mild canal stenosi s and mild/moderate neural foraminal stenosis. C7-T1 and the other visualized upper thoracic levels, show no significant narrowing of the bony spinal canal or foramina. Vertebral alignment: No traumatic malalignment. Preserved normal cervical lordosis. Neck soft tissues: No acute finding.. Calcifications noted involving the cervical carotid arteries mo stly in the bifurcation regions, and along aortic arch. Other: Lung apices show no acute infiltrate or pneumothorax. A mild mosaic pattern of lung attenuati on is suggested; mosaic pattern of lung attenuation is nonspecific, can be associated with obstructiv e small airways disease, occlusive vascular disease, other vascular causes such as pulmonary edema or pulmonary hemorrhage, or parenchymal disease including acute/subacute infection. A 2.5 mm nodule in the left upper lobe posteriorly, of doubtful clinical significance. IMPRESSION: CT head: 1. No acute intracranial CT abnormality. 2. Atrophy and chronic microvascular ischemic changes. CT cervical spine: 1. No evidence of cervical spine fracture or traumatic malalignment. 2. Mild cervical spondylosis. 3. Mild mosaic attenuation of the imaged lung apices.
== END 2023-04-25 18:26 | disposition home or self-care (01) ==
LOC: EC 12:07
DX: S09.90XA Unspecified injury of head, initial encounter (principal); I48.91 Unspecified atrial fibrillation; E11.9 Type 2 diabetes mellitus without complications; I10 Essential (primary) hypertension; M19.90 Unspecified osteoarthritis, unspecified site; Z79.84 Long term (current) use of oral hypoglycemic drugs; Z79.82 Long term (current) use of aspirin; Z79.899 Other long term (current) drug therapy; Z88.0 Allergy status to penicillin; Z88.2 Allergy status to sulfonamides; Z88.8 Allergy status to other drugs, medicaments and biological substances; W01.0XXA Fall on same level from slipping, tripping and stumbling without subsequent striking against object, initial encounter
CPT/HCPCS: 36415; 70450; 72125; 74018; 80053; 85025; 99284